=== PATIENT | female | born 1955 | race Caucasian/White ===

== ENCOUNTER 2019-10-27 08:44 | Outpatient (CLI) | payer MEDICARE, OTHER, SELFPAY ==
--- NOTE | 2019-10-27 08:52 | XRR_ITS ---
PROCEDURE INFORMATION: Exam: XR Chest, 2 Views Exam date and time: 10/27/2019 9:07 AM Age: 63 years old Clinical indication: Patient HX: Chronic rhinitis, sinusitis, cough, fever TECHNIQUE: Imaging protocol: XR of the chest Views: Frontal and lateral upright views. COMPARISON: No relevant prior studies available. FINDINGS: Lungs: The lungs are clear bilaterally. The pulmonary vasculature is normal. Pleural space: No pleural effusion. No pneumothorax. Heart/Mediastinum: The heart is normal in size and contour. Aorticopulmonary window granulomatous jermaine calcifications are present. The lungs are clear bilaterally. Bones/joints: No acute chest wall abnormality identified. XR/XR chest 2V* [id number] IMPRESSION: No acute cardiopulmonary abnormality identified.
== END 2019-10-27 08:45 | disposition home or self-care (01) ==
PROVIDERS: Family Provider Electrodiagnostic Medicine; Visit Provider Otolaryngology
DX: R50.9 Fever, unspecified (principal)
CPT/HCPCS: 71046

== ENCOUNTER 2020-02-26 08:45 | Outpatient (CLI) | payer MEDICARE, OTHER, SELFPAY ==
--- NOTE | 2020-02-26 08:50 | MM_ITS ---
WS: [id number] Exam: [id number] Date/Time of Exam: 02/26/2020 8:54 AM Reason For Exam: SCREENING VIEWS: MLO and CC views both breasts. Comparison made with prior exam of 12/22/2016. Findings: There was no sign of mass, architectural distortion or suspicious calcification in either breast. Sca ttered fibroglandular densities noted bilaterally. MM/[id number] Impression: BI-RADS: 2-Benign FOLLOW-UP: 1 Year Follow-up This mammogram was also analyzed by the Computer Aided Detection System R2 Imag e Color Expert.
== END 2020-02-26 08:46 | disposition home or self-care (01) ==
LOC: RADSHAW 08:48
PROVIDERS: PCP Electrodiagnostic Medicine; Visit Provider Electrodiagnostic Medicine
DX: Z12.31 Encounter for screening mammogram for malignant neoplasm of breast (principal)
CPT/HCPCS: 77067

== ENCOUNTER 2020-05-03 09:32 | Outpatient (CLI) | payer MEDICARE, OTHER, SELFPAY ==
[2020-05-03 10:54] LABS: Basophils # 0.1 10^3/uL (0.0-0.1); Basophils % 1.3 %; Eosinophils # 0.4 10^3/uL (0.0-0.8); Hematocrit 35.7 % (37.0-47.0); Lymphocytes # 2.1 10^3/uL (0.8-4.8); Lymphocytes % 32.4 %; Mean Corpuscular HGB Conc 33.6 g/dL (30.0-36.0); Mean Corpuscular Hemoglobin 30.5 pg (28.0-34.0); Mean Corpuscular Volume 90.6 fL (81-99); Mean Platelet Volume 9.1 fL (7.4-10.4); Monocytes # 0.5 10^3/uL (0.2-0.9); Monocytes % 7.9 %; Neutrophils # 3.25 10^3/uL (1.8-7.7); Neutrophils % 51.4 %; Nucleated Red Blood Cells % 0 %; Platelet Count 375 10^3/cmm (130-400); Red Blood Count 3.94 10^6/uL (4.1-5.3); Red Cell Distribution Width 12.5 % (12.1-15.1); White Blood Count 6.3 10^3/uL (4.0-10.0)
[2020-05-03 11:19] LABS: Alanine Aminotransferase 21 U/L (0-33); Albumin Level 4.1 g/dL (3.5-5.2); Alkaline Phosphatase 74 IU/L (35-105); Anion Gap 14.9 (5-19); Aspartate Amino Transferase 27 U/L (0-32); Blood Urea Nitrogen 11 mg/dL (8-23); Calcium 9.9 mg/dL (8.5-10.5); Carbon Dioxide 28 mmol/L (22-29); Chloride 96 mmol/L (98-107); Globulin 2.8 g/dL (1.3-4.6); Glomerular Filtration Rate 83.7 mL/min (90-130); Glucose 106 mg/dL (65-115); Osmolality Calculated 280 mOsm/kg (285-295); Potassium 3.9 mmol/L (3.5-5.1); Sodium 135 mmol/L (136-145); Total Bilirubin 0.3 mg/dL (0.15-1.2); Total Protein 6.9 g/dL (6.6-8.7)
== END 2020-05-03 09:33 | disposition home or self-care (01) ==
PROVIDERS: PCP Electrodiagnostic Medicine; Visit Provider Internal Medicine Pulmonary Disease
DX: R05 Cough (principal)
CPT/HCPCS: 36415; 80053; 85025; 86331; 86606; 86609; 86631; 86632

== ENCOUNTER → 2020-05-12 12:06 | Outpatient (BNVA) | payer MEDICARE, OTHER, SELFPAY | PROVIDERS: PCP Electrodiagnostic Medicine; Visit Provider Internal Medicine Pulmonary Disease | DX: R05 Cough (principal) | CPT/HCPCS: 87635 ==

== ENCOUNTER 2020-05-17 13:19 | Outpatient (CLI) | payer MEDICARE, OTHER, SELFPAY ==
--- NOTE | 2020-05-17 13:30 | CT_ITS ---
WS: [id number] CT CHEST high-resolution, noncontrast. HISTORY: to rule out ILD TECHNIQUE: High-resolution axial imaging performed on the thorax. Coronal and sagittal reformats are submitted. All CT scans at [facility] use at least one of these dose optimization techniq ues: automated exposure control; mA and/or kV adjustment per patient size (includes targeted exams wh ere dose is matched to clinical indication); or iterative reconstruction. CONTRAST: None DLP: 281.65 mGy.cm COMPARISON: None available. Hyperinflated lungs. No reticulations in the periphery of the lungs. There is no honeycombing or trac tion bronchiectasis. On expiration there is an increase in the groundglass attenuation consistent wit h volume loss and crowding. No persistent areas of atelectasis noted on the prone positioning. Very mild atherosclerosis of the aorta. Pulmonary artery size is equal to the aorta. Heart size is no rmal. Visualization of the chest wall and upper abdomen are negative. CT/CT chest wo con [id number] IMPRESSION: 1. Mild hyperexpansion. 2. No evidence for interstitial lung disease.
--- NOTE | 2020-05-17 14:38 | PFTS_ITS ---
Date of Study:05/17/20 Date of Dictation: MECHANICS: Forced vital capacity (FVC) is . Forced expiratory volume in one second (FEV1) is . FEV1/FVC is . FLOW VOLUME LOOP: . LUNG VOLUMES: Total lung capacity (TLC) is . Residual volume (RV) is . DIFFUSING CAPACITY FOR CARBON MONOXIDE: . INTERPRETATION: The pulmonary function tests are . mechanics and lung volumes. Gas exchange (DLCO) is . MTDD
--- NOTE | 2020-05-17 14:39 | MECH_ITS ---
Date of Study:05/17/20 Date of Dictation: 05/18/2020 INTERPRETATION: The methacholine challenge test is negative MTDD
--- NOTE | 2020-06-07 14:40 | PFTS_ITS ---
Date of Study:05/17/20 Date of Dictation: MECHANICS: Forced vital capacity (FVC) is normal. Forced expiratory volume in one second (FEV1) is normal. FEV1/FVC is normal No significant response to bronchodilators.. FLOW VOLUME LOOP: Normal. LUNG VOLUMES: Not measured DIFFUSING CAPACITY FOR CARBON MONOXIDE: Not measured . INTERPRETATION: The spirometry is normal. Lung volumes and gas transfer not measured. MTDD
== END 2020-05-17 13:20 | disposition home or self-care (01) ==
LOC: CT 13:19
PROVIDERS: PCP Electrodiagnostic Medicine; Visit Provider Internal Medicine Pulmonary Disease
DX: R05 Cough (principal)
CPT/HCPCS: 71250; 94060; 94070; 94726; 94729; J7611

== ENCOUNTER 2021-04-15 13:10 | Outpatient (CLI) | payer MEDICARE, OTHER, SELFPAY ==
--- NOTE | 2021-04-15 13:21 | MM_ITS ---
WS: [id number] BILATERAL SCREENING DIGITAL MAMMOGRAM WITH CAD HISTORY: SCREENING COMPARISON: 02/26/2020, 07/12/2018, 01/15/2019 Bilateral CC and MLO views submitted. Computer aided detection analyzed. Breast composition: There are scattered areas of fibroglandular density. No suspicious masses, microc alcifications or architectural distortion. Benign calcifications LEFT breast. No suspicious masses. MM/[id number] IMPRESSION: BI-RADS: 2-Benign FOLLOW UP: 1 Year Follow-up
== END 2021-04-15 13:11 | disposition home or self-care (01) ==
LOC: RADSHAW 13:19
PROVIDERS: PCP Electrodiagnostic Medicine; Visit Provider Electrodiagnostic Medicine
DX: Z12.31 Encounter for screening mammogram for malignant neoplasm of breast (principal)
CPT/HCPCS: 77067

== ENCOUNTER → 2021-10-25 09:26 | Outpatient (BNVA) | payer MEDICARE, OTHER, SELFPAY | PROVIDERS: PCP Electrodiagnostic Medicine; Referring Provider Electrodiagnostic Medicine; Visit Provider Specialist | DX: G62.89 Other specified polyneuropathies (principal) | CPT/HCPCS: 95909; 95911 ==

== ENCOUNTER → 2022-02-17 07:15 | Outpatient (BNVA) | payer MEDICARE, OTHER, SELFPAY | PROVIDERS: PCP Electrodiagnostic Medicine; Referring Provider Electrodiagnostic Medicine; Visit Provider Student in an Organized Health Care Education/Training Program | DX: M16.11 Unilateral primary osteoarthritis, right hip (principal) | CPT/HCPCS: 73502; 99204 ==

== ENCOUNTER 2022-03-07 11:07 | Outpatient (CLI) | payer MEDICARE, OTHER, SELFPAY | END 2022-03-07 11:08 | disposition home or self-care (01) | LOC: RT 03-08 12:23 | PROVIDERS: PCP Electrodiagnostic Medicine; Visit Provider Student in an Organized Health Care Education/Training Program | DX: Z01.89 Encounter for other specified special examinations (principal) | CPT/HCPCS: 93005 ==

== ENCOUNTER 2022-03-10 09:20 | Outpatient (CLI) | payer MEDICARE, OTHER, SELFPAY ==
--- NOTE | 2022-03-10 13:00 | CT_ITS ---
WS: [id number] CT RIGHT hip, noncontrast HISTORY: pre op planning TECHNIQUE: Protocol for [facility] total hip replacement has been obtained. This includes axial imaging thr ough the pelvis and knees, bilateral. DLP: 809.36 mGy-cm. COMPARISON: None available. Flattening and deformity involving the RIGHT femoral head with mild subluxation. Subchondral cystic c hanges involving the acetabulum. Very minimal narrowing of the LEFT hip joint. Very minimal narrowing of the medial compartments of each knee. No dislocation. No destructive bone l esions. CT/CT hip RT [facility] IMPRESSION: CT imaging provided for [facility] robotic RIGHT hip replacement.
== END 2022-03-10 09:21 | disposition home or self-care (01) ==
LOC: RAD 09:20
PROVIDERS: PCP Electrodiagnostic Medicine; Visit Provider Student in an Organized Health Care Education/Training Program
DX: Z01.818 Encounter for other preprocedural examination (principal); M16.11 Unilateral primary osteoarthritis, right hip
CPT/HCPCS: 73700

== ENCOUNTER 2022-03-15 13:58 | Observation (INO) | payer MEDICARE, OTHER, SELFPAY ==
[2022-03-07 10:54] VITALS: BMI 35.9
--- NOTE | 2022-03-07 11:07 | ECG_ITS ---
[facility] Test Date: 2022-03-07 Pat Name: Chelsey Carrizales Department: Room: Gender: Female Operator/Assistant Foreman: : 1955 Requested By: Darius Betancourt Order Number: [id number] Estela MD: Hay Rojas M.D. Measurements Intervals [place] Rate: 78 P: 39 [place]: 174 QRS: 6 QRSD: 92 T: 53 QT: 363 QTc: 415 Interpretive Statements SINUS RHYTHM POSSIBLE ANTERIOR MYOCARDIAL INFARCTION , PROBABLY OLD [30 ms Q WAVE IN V3/V4, OR R < 0.2 mV IN V4] No previous ECG available for comparison Electronically Signed On 03-07-2022 21:06:25 [employer] by Hay Rojas M.D. [id number]
[2022-03-07 11:45] LABS: Basophils # 0.1 10^3/uL (0.0-0.1); Basophils % 1.2 %; Eosinophils # 0.4 10^3/uL (0.0-0.8); Eosinophils % 5.8 %; Hematocrit 38.8 % (37.0-47.0); Hemoglobin 13.1 g/dL (11.5-15.3); Lymphocytes # 2.5 10^3/uL (0.8-4.8); Lymphocytes % 37.3 %; Mean Corpuscular HGB Conc 33.8 g/dL (30.0-36.0); Mean Corpuscular Hemoglobin 29.8 pg (28.0-34.0); Mean Corpuscular Volume 88.2 fl (81-99); Mean Platelet Volume 9.1 fL (7.4-10.4); Monocytes # 0.5 10^3/uL (0.2-0.9); Monocytes % 7.7 %; Neutrophils # 3.15 10^3/uL (1.8-7.7); Neutrophils % 47.7 %; Nucleated Red Blood Cells % 0 %; Platelet Count 438 10^3/cmm (130-400); Red Cell Distribution Width 12.4 % (12.1-15.1); White Blood Count 6.6 10^3/uL (4.0-10.0)
[2022-03-07 12:02] LABS: Glucose Urine UA Norm (Normal); Ketones Urine Negative (Negative); Protein Urine Neg (Negative); Urine Appearance Clear (CLEAR); Urine Color Yellow (Yellow); pH Urine 7 (5-7)
[2022-03-07 12:03] LABS: Add Urine Culture? Yes; Add Urine Microscopic? YES; Bacteria Urine 4+ /hpf; Bilirubin Urine Neg (Negative); Blood Urine 2+ (Negative); Leukocyte Esterase Urine Trace (Negative); Nitrate Urine Positive (Negative); RBC Urine 0-4 /hpf (0-2); Squamous Epithelial Cell Urine 0-4 /hpf (0-5); Urobilinogen Urine Norm (Negative)
[2022-03-07 12:10] LABS: Alanine Aminotransferase 19 U/L (0-33); Albumin Level 4.2 g/dL (3.5-5.2); Alkaline Phosphatase 81 U/L (35-105); Aspartate Amino Transferase 29 U/L (0-32); Blood Urea Nitrogen 12 mg/dL (8-23); Carbon Dioxide 26 mmol/L (22-29); Chloride 96 mmol/L (98-107); Creatinine Clr Calc Pharmacy 86.2317; Globulin 2.9 g/dL (1.3-4.6); Glomerular Filtration Rate 122.7 mL/min (90-130); Glucose 119 mg/dL (65-115); Osmolality Calculated 275 mOsm/kg (285-295); Sodium 132 mmol/L (136-145); Total Bilirubin 0.4 mg/dL (0.15-1.2); Total Protein 7.1 g/dL (6.6-8.7)
--- NOTE | 2022-03-07 14:17 | ANES.PREANE2 ---
Pre-Anesthetic Assessment Height/Weight: Height 1.73 m Weight 107.048 kg Preop Diagnosis: Right hip AVN, advanced degenerative joint disease Operation Date: 03/15/22 13:10 Proposed Procedures p [facility] right total hip arthroplasty [facility] posterior approach/ [id number](Right) - Darius Betancourt DO Familial anesthetic complications: none Was Beta Kory taken within 24 hours: Yes Was Clonidine taken within 24 hours: N/A Social No alcohol and No tobacco Exam alert, oriented x 3, clear to auscultation bilaterally and regular rate & rhythm Airway Submandibular: within normal limits Cervical ROM: within normal limits Mallampati: Class II Dentition: full Pulmonary Asthma CV/HEM Hypertension Metabolic Morbid Obesity and Thyroid Disease [facility] [place] Osteoarthritis/DJD Neuropsych Anxiety and Neuropathy Anesthetic Plan ASA status: 3 Anesthesia: Regional (specify below) (SAB) Medications/Allergies Home Medications Medication Instructions Recorded Confirmed Last Taken Type cyclobenzaprine 10 mg tablet 10 mg PO TID 04/07/20 03/07/22 Unknown History fluticasone propionate 50 1 spray intranasal BID 04/07/20 03/07/22 Unknown History mcg/actuation nasal spray,suspension (Flonase Allergy Relief) hydrochlorothiazide 12.5 mg tablet 12.5 mg PO DAILY 04/07/20 03/07/22 Unknown History levothyroxine 125 mcg tablet 150 mcg PO DAILY 04/07/20 03/07/22 Unknown History meloxicam 15 mg tablet 15 mg PO DAILY 04/07/20 03/07/22 Unknown History metoprolol succinate 100 mg 100 mg PO DAILY 04/07/20 03/07/22 Unknown History tablet,extended release 24 hr montelukast 10 mg tablet 10 mg PO DAILY 04/07/20 03/07/22 Unknown History rizatriptan 10 mg tablet (Maxalt) 10 mg PO Q2H PRN Headache 04/07/20 03/07/22 Unknown History trazodone 100 mg tablet 100 mg PO DAILY 04/07/20 03/07/22 Unknown History metoclopramide HCl 10 mg tablet 10 mg PO Q6H PRN Nausea 05/03/20 03/07/22 Unknown History alprazolam 0.5 mg disintegrating 0.5 mg PO DAILY 10/25/21 03/07/22 Unknown History tablet cholecalciferol (vitamin D3) 125 125 mcg PO DAILY 10/25/21 03/07/22 Unknown History mcg (5,000 unit) capsule losartan 50 mg tablet 50 mg PO DAILY 10/25/21 03/07/22 Unknown History magnesium oxide 400 mg PO DAILY 10/25/21 03/07/22 Unknown History tramadol 50 mg tablet 100 mg PO TID PRN Pain 10/25/21 03/07/22 Unknown History vitamin B complex 1 tab PO DAILY 10/25/21 03/07/22 Unknown History aspirin 81 mg tablet 81 mg PO DAILY 03/07/22 03/07/22 Unknown History gabapentin 100 mg capsule 300 mg PO TID 03/07/22 03/07/22 Unknown History Allergies Allergy/AdvReac Type Severity Reaction Status Date / Time No Known Allergies Allergy Verified 03/07/22 10:41 [facility] Anesthesia Medical History Chronic cough Family History Mother Hypertension Heart disease Father Heart disease Hypertension Stroke Social History Smoking and tobacco status: never smoked Second hand smoke exposure: No Smoking risk assessment/counseling performed?: Yes Alcohol intake: never Caregiver/support person: No Lives independently: Yes Household members: none Housing: House Marital status: service: No Current occupational status: retired Pets and animals: Yes History of recent travel: No ( for [place] ) Current gender identity: Female Data Anesthesia : 03/07/22 11:23 03/07/22 11:23 Short CBC 03/07/22 Range/Units 11:23 WBC 6.6 (4.0-10.0) 10^3/uL Hgb 13.1 (11.5-15.3) g/dL Hct 38.8 (37.0-47.0) % MCV 88.2 (81-99) fl Plt Count 438 H (130-400) 10^3/cmm Neut % (Auto) 47.7 % Neut # (Auto) 3.15 (1.8-7.7) 10^3/uL BMP 03/07/22 11:23 Sodium 132 L Potassium 4.0 Chloride 96 L Carbon Dioxide 26 BUN 12 Creatinine 0.5 Glucose 119 H Calcium 10.0 Liver Function 03/07/22 Range/Units 11:23 Total Bilirubin 0.4 (0.15-1.2) mg/dL AST 29 (0-32) U/L ALT 19 (0-33) U/L Alkaline Phosphatase 81 (35-105) U/L Albumin 4.2 (3.5-5.2) g/dL Urine 03/07/22 Range/Units 11:23 Urine Color Yellow (Yellow) Urine Appearance Clear (CLEAR) Urine pH 7 (5-7) Ur Specific [place] 1.010 (1.005-1.030) Urine Protein Neg (Negative) Urine Glucose (UA) Norm (Normal) Urine Ketones Negative (Negative) Urine Nitrate Positive H (Negative) Urine Bilirubin Neg (Negative) Ur Leukocyte Esterase Trace H (Negative) Urine RBC 0-4 H (0-2) /hpf Urine WBC 10-15 H (0-5) /hpf Coags 03/07/22 11:23 PT Cancelled INR Cancelled Cardiac Studies: No Data to Display
[2022-03-15] VITALS (20 sets, daily range): BP systolic 105–184; BP diastolic 56–134; PULSE 69–113; RESP 11–21; TEMP 36.1–36.6; O2SAT 93–100; BMI 35.9
[2022-03-15] MEDS: sodium chloride 0.9% 1,000 ML 30 ML IV (08:41)
[2022-03-15] MEDS: scopolamine 1.5 Patch 1 PATCH TRANSDERMA (08:41)
[2022-03-15] MEDS: gabapentin 300 mg Capsule PO ×2 (08:42→16:10)
[2022-03-15] MEDS: ketorolac 30 mg/mL INJ IVP (08:42)
[2022-03-15] MEDS: acetaminophen 1,000 MG/100 ML PIGGYBACK 400 MG IV (08:42)
--- NOTE | 2022-03-15 08:47 | P.ANESUD_ITS ---
Pre-Anesthetic Update Pre-Anesthetic Assessment: Date of Surgery/Procedure: 03/15/22 Preop Martha gnosis: Right hip AVN, advanced degenerative joint disease Proposed Procedure: Operation Date: 03/15/22 09:50 Proposed Procedures p [facility] right total hip arthroplasty [facility] posterior approach/ [id number](Right) - Darius Betancourt, DO Any changes to Pre-Anesthetic Assessment?: No Last Intake: Intake Last Liquid Date 03/14/22 Last Liquid Time 19:00 Last Solid Date 03/14/22 Last Solid Time 21:00 Vitals: Temperature 98 F 03/15/22 08:24 Temperature Source Temporal Artery S can 03/15/22 08:24 Pulse Rate 89 03/15/22 08:24 Respiratory Rate 18 03/15/22 08:24 Pulse Oximetry 96 03/15/22 08:24 Oxygen Delivery Me thod 03/15/22 08:24 Exam: Pre-Anes Outpt Exam: alert, oriented x 3, clear to auscultation bilaterally and regular rate & rhythm Cardiac Studies: No Data to Display
[2022-03-15 09:01] LABS: INR 0.95 (0.8-1.2)
--- NOTE | 2022-03-15 10:12 | W.PM.OPSUD ---
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
--- NOTE | 2022-03-15 13:06 | XR_ITS ---
WS: [id number] Exam: XR hip RT 2-3V wo/w pel* [id number] Date/Time of Exam: 03/15/2022 1:39 PM Reason For Exam: postop AMANDA A right total hip prosthesis has been placed and appears to be in excellent position. Postoperative c hanges in the adjacent soft tissues. XR/XR hip RT 2-3V wo/w pel* [id number] IMPRESSION: 1. Right total hip prosthesis in excellent position.
--- NOTE | 2022-03-15 13:16 | PM.OP2 ---
Brief Operative Note Date of procedure: 03/15/22 Pre-op diagnosis: Right hip AVN, advanced degenerative joint disease Post-op diagnosis: same Procedure Done: Right total hip arthroplasty Surgeon: Darius Betancourt Estimated blood loss (mL): 250 Complications: None Post-op Plan: Recovering well in PACU. Spinal anesthesia wearing off. Hip abduction pillow on in place. Patient will receive postoperative x-rays. Weightbearing as tolerated to the right lower extremity. DVT prophylaxis, pain control postoperative antibiotics. We will work with PT/OT. Internal medicine will be on board for medical management. Condition: stable Disposition: floor Coding Level of Care Code Acute Campus Coordinator for Elsa Boyd
--- NOTE | 2022-03-15 13:37 | PM.PACU ---
PACU note Narrative: Patient recovering well in PACU. Spinal anesthesia wearing off. She has sensation tact light touch distally to the right lower extremity. Distal pulses palpable she is able to wiggle toes as well as plantarflex and dorsiflex ankle. Will receive postoperative x-rays. Dressings on in place and are clean dry and intact Exam: awake (See narrative for detailed exam) Disposition: admitted
--- NOTE | 2022-03-15 13:38 | PM.OP ---
Operative Report Date of procedure: March 15, 2022 Pre-op diagnosis: Preop Diagnosis Right hip AVN, advanced degenerative joint disease Post-op diagnosis: Same Procedure done: Right total hip arthroplasty?Farhat posterior approach Implants: [place] Trident TriTanium acetabular shell 54 mm Gisele 6.5 mm acetabular screw 30 mm x 2 Polyethylene 36 mm inner diameter insert [place] Accolade 2 size 5 Biolox ceramic femoral head 36 mm standard offset Surgeon: Darius Betancourt DO Estimated blood loss: 250 mL IV fluids: See anesthesia record Complications: None Findings: See operative report narrative Condition: stable Disposition: floor Brief History: Patient was seen evaluate in the outpatient setting worked up for right hip degenerative joint disease with advanced AVN of the femoral head. Patient's had rapid progressing AVN with now severe flattening of the femoral head on the acetabulum. Tinz-ma-lbnw arthritis noted. She is failed conservative treatment she had an injection back in October she is now over 90 days from her injection. She was seen evaluated in the fall and her physical exam findings she is limited to a wheelchair and minimal ambulation secondary to her pain and discomfort. We talked about her treatment options far as nonoperative and operative intervention. This point time I feel that she would greatly benefit from a right total hip arthroplasty. Given her AVN of the femoral head I do worry about potential dysplasia of the acetabulum and possible posterior and superior defects. As result would plan on giving her acetabular defect potential as well as body habitus feel as though she be a good candidate for a posterior approach right total hip arthroplasty utilizing Farhat. Document risk benefits complication alternatives surgical nonsurgical treatment options. She understands and agrees to proceed with surgical intervention at this time. All questions answered. Procedure: Patient was seen evaluate in preoperative holding area. Consent was reviewed and signed with patient. Correct extremity was then marked. Patient seen evaluate by anesthesia department once cleared for surgery she was taken back to the operative suite. She underwent spinal anesthesia per the anesthesia department. This point time she was then placed on the operative suite and table. She was then placed in lateral decubitus patient worked with the right hip up. She was secured to the pegboard. All bony prominences well-padded she was properly secured to the bed. At this point time the right lower extremity was then prepped and draped in standard orthopedic fashion with care not to drape out the iliac wing for pelvic array placement. Final timeout performed. Patient received appropriate preoperative antibiotics. Started off with establishment of my pelvic array pins. A small longitudinal incision was made directly over the iliac wing. Sharp scalpel excision through skin and subcutaneous tissue directly onto bone. Next I then loaded my pelvic pin. This was then drilled through the iliac wing corridor with excellent fixation. Next I then loaded the guide which was placed directly onto bone and then subsequently placed 2 more pins to secure fixation. Next the pelvic array was then sent had excellent visualization with the Farhat robot and was secured. Next I proceeded with my stapling to francisco my leg lengths this was placed on the lateral thigh. Next I proceeded with my standard posterior approach. Sharp scalpel through skin and subcutaneous tissue this was centered over the greater trochanter. I then utilized a Lala elevator over the gluteus terra fascia. Next the fascia was then split longitudinally with bipolar electrocautery. Next a Charnley retractor was then placed. All bone was then placed into the abductors. A standard full-thickness release of the piriformis and the short external rotators along with the capsule to grade 1 full thick sleeve for later repair was then placed straight down to the lesser trochanter. Lesser trochanter was then subsequently identified. Prior to dislocating the hip we then placed our greater trochanter femur checkpoint. We marked our appropriate checkpoint for referencing on her pelvic array. At this point in time we then established both of our checkpoints as well as her referencing for leg lengths I utilized the small square staple on the lateral aspect of the thigh to francisco my distal point. The legs were marked and traced to have appropriate position on the drapes to allow for accurate reading. This is to have a short leg lengths which we were 19 mm short on the right side comparative to the left in our preoperative plan. Once this was then established I then proceeded with dislocation of the femoral head. At this point Hohmann's were then placed superiorly and inferiorly. My sciatic nerve was protected throughout this case. At this point time I then utilized the Farhat robot and referencing point to reference different aspects along the femoral head and neck for my appropriate neck length. These were referenced on the inferior mid substance as well as up into the superior shoulder of the femoral neck. This marked my Subsequently oscillating saw was used to make my femoral neck cut. Next the leg was placed in appropriate position and my anterior and posterior acetabular retractors then placed. Next I excised the labrum and then remove the pulse in our. I did do a small release of the inferior capsule which was severely taut to allow for easier placement of my reamers as well as reduction. Acetabulum was thoroughly irrigated. It was noted to have more of a defect on the superior and anterior aspect given patient's deformed femoral head. I had significant medialization that could take place with my preoperative plan at this point time I did not feel as though an augment would be necessary as I would have excellent bone implant interface. At this point in time keeping my retractors in place I subsequently loaded up the [employer] robot for my acetabular reaming. I subsequently medialized with a 48 mm with appropriate positioning. Next I then set my 54 reamer under the Farhat robot and subsequently held this with appropriate preplanned preop planned version of 40 degrees of abduction angle as well as 22 degrees of anteversion. I then subsequently reamed this to the appropriate depth. We opened up the acetabular shell of the 54 mm [place] this was then loaded onto my impacting system and then I subsequently impacted this to appropriate depth. This was then removed from the robot and I used the Farhat probe at the center to confirm on the CT scan that this was down on bone which it was. Next I then drilled and placed 2 acetabular screws with excellent fixation these were drilled and measured to be 30 mm this was in the posterior superior aspect of the acetabulum had excellent bite and fixation. The cup was rocksolid with no evidence of plain had excellent press-fit fixation. And opened the 36 mm inner diameter Trident polyethylene insert which was then subsequently placed in appropriate position and impacted into place. I then placed a sponge into the acetabulum to protect the polyethylene while my femur preparation was performed. At this point time I then utilized a small rongeur to clear off the shoulder of the femoral neck to clear out the soft tissue envelope for my box osteotome. Next box osteotome was used a canal finder was placed as well as a lateral lysing rattail rasp. Once I was appropriately lateralized I then sequentially broached up to a size 5 femoral stem. This was impacted to appropriate depth and flushed with my femoral neck cut. This point I loaded a standard size neck and subsequently reduced the hip. At this point in time the hip was taken through range of motion before evaluating with the robot on her leg lengths. Patient appeared to have equal leg lengths clinically. The hip was taken through range of motion and had excellent stability with hip flexion and internal rotation with no evidence of instability had an appropriate shuck. This point time utilized the Farhat probe from our femur checkpoint down to her distal checkpoint and this had excellent match of leg lengths. We had lengthened the patient roughly 19-20 millimeters to match her other leg lengths. At this point time with this in place she did have some tension in her abductors due to obviously her being somewhat lengthened however at this point time this was excellent stable and had appropriate match leg lengths. I did check her nerve which was still lax and did not appear to be overly tension due to her lengthening. At this point I dislocated the hip and then called for my final implants. Opened up a size 5 femoral Accolade 2 stem. My trials were then removed and then subsequently impacted my Accolade 2 stem to the same level. Given this was at the same level I then opened up the final ceramic 36 mm standard offset femoral head. This was impacted with excellent fixation and the hip was subsequently reduced. We measured our final leg lengths which were appropriate patient had excellent stability in all ranges of motion. This point time a robotic pins and checkpoints were removed. I remove the femur checkpoint as well as my pelvic array and iliac wing pins. Appropriate counts were then made. This point time thoroughly irrigated the wound bed with pulse lavage. Vancomycin powder was then sprinkled into the wound bed. I then performed a standard capsular and external rotator repair utilizing #5 Ethibond and this was tied and repaired through bone tunnels hip was then kept in abduction external rotation 1 and subsequently closed the fascial layer with Ethibond suture as well as running strata fix suture. I then closed the deep subcutaneous layer as well as superficial subcutaneous layer with running strata fix suture as well as 4 oh strata fix for skin. Prineo glue dressing was then placed over the skin. I then irrigated the pelvic array pin site. There is were then closed with interrupted 020 Vicryl suture and Monocryl as well as Prineo glue for the skin. Incisions were then covered with Silverlon dressing. Patient was awakened from anesthesia and taken to PACU in stable condition Disposition: Patient taken to PACU in stable condition. She will receive appropriate discharge instructions as well as DVT prophylaxis and pain medication. She will be admitted to the floor for observation should be evaluated by the internal medicine team for medical management. Patient received appropriate DVT prophylaxis as well as pain medication PT/OT weightbearing as tolerated right lower extremity with posterior hip precautions. We will follow-up with patient in the office in 2 weeks. Patient understands agrees with current plan. All questions answered.
--- NOTE | 2022-03-15 14:47 | ANE.PACU2 ---
Inpatient post-anesthesia follow up: Airway intact: Yes Vital signs: Temperature 97.5 F Pulse Rate 76 Respiratory Rate 16 Blood Pressure 122/88 Pulse Oximetry 98 Oxygen Delivery Me thod Room Air Oxygen Flow Rate 8 Fraction of Inspir ed Oxygen Hydration adequate: Yes Nausea and vomiting: No Pain level: 1 Mental status: Baseline
--- NOTE | 2022-03-15 15:36 | PM.CONSULT ---
Providers/Reason For Consult Consulting Physician/Specialty*: orthopedic Reason for Consult*: medical managment Attending Physician: Darius Betancourt DO Primary Care Provider: Bennett Pa DO History of Present Illness History of Present Illness Chelsey Carrizales is a 66 year old female with a past medical history of hypertension, hyperlipidemia, right hip AVN, who presents for a right hip arthroplasty. Hospitalist team was called for medical management, she denies a history of CAD, no history of COPD, history of smoking, history of diabetes, no history of kidney disease, she tells me that she has been dealing with right hip pain for the last year. She lives at home by herself, is able to take care of herself. Denies any chest pain, palpitations, no shortness of breath. Denies history of anemia, denies a history of bleeding Review of Systems Const: Denies: fever(s) Card: Denies: chest pain Resp: Denies: dyspnea Medications/Allergies Home Medications Medication Instructions Recorded Confirmed Last Taken Type cyclobenzaprine 10 mg tablet 10 mg PO TID 04/07/20 03/15/22 03/14/22 History fluticasone propionate 50 1 spray intranasal BID 04/07/20 03/15/22 03/15/22 07:00 History mcg/actuation nasal spray,suspension (Flonase Allergy Relief) hydrochlorothiazide 12.5 mg tablet 12.5 mg PO DAILY 04/07/20 03/15/22 03/14/22 History levothyroxine 125 mcg tablet 150 mcg PO DAILY 04/07/20 03/15/22 03/14/22 History meloxicam 15 mg tablet 15 mg PO DAILY 04/07/20 03/15/22 03/13/22 History metoprolol succinate 100 mg 100 mg PO DAILY 04/07/20 03/15/22 03/14/22 History tablet,extended release 24 hr montelukast 10 mg tablet 10 mg PO DAILY 04/07/20 03/15/22 03/14/22 History rizatriptan 10 mg tablet (Maxalt) 10 mg PO Q2H PRN Headache 04/07/20 03/15/22 03/08/22 History trazodone 100 mg tablet 100 mg PO DAILY 04/07/20 03/15/22 03/14/22 History metoclopramide HCl 10 mg tablet 10 mg PO Q6H PRN Nausea 05/03/20 03/15/22 03/14/22 History alprazolam 0.5 mg disintegrating 0.5 mg PO DAILY 10/25/21 03/15/22 03/14/22 History tablet cholecalciferol (vitamin D3) 125 125 mcg PO DAILY 10/25/21 03/15/22 03/14/22 History mcg (5,000 unit) capsule losartan 50 mg tablet 50 mg PO DAILY 10/25/21 03/15/22 03/14/22 History magnesium oxide 400 mg PO DAILY 10/25/21 03/15/22 03/14/22 History tramadol 50 mg tablet 100 mg PO TID PRN Pain 10/25/21 03/15/22 03/14/22 History vitamin B complex 1 tab PO DAILY 10/25/21 03/15/22 03/14/22 History aspirin 81 mg tablet 81 mg PO DAILY 03/07/22 03/15/22 03/10/22 History gabapentin 100 mg capsule 300 mg PO TID 03/07/22 03/15/22 03/14/22 History Allergies Allergy/AdvReac Type Severity Reaction Status Date / Time No Known Allergies Allergy Verified 03/15/22 08:15 PFSH Acute PFSH: Medical History (Updated 03/15/22 @ 15:39 by Topher Palmer MD) Chronic cough Hypertension Hypothyroid Surgical History (Updated 03/15/22 @ 15:39 by Topher Palmer MD) Hx of appendectomy Hx of tonsillectomy Family History Mother Hypertension Heart disease Father Heart disease Hypertension Stroke Social History Smoking and tobacco status: never smoked Second hand smoke exposure: No Smoking risk assessment/counseling performed?: Yes Alcohol intake: never Caregiver/support person: No Lives independently: Yes Household members: none Housing: House Marital status: service: No Current occupational status: retired Pets and animals: Yes History of recent travel: No ([place] for [place] ) Current gender identity: Female Vitals/I&O/Wt Last Vital Signs Temp 97.5 F L 03/15/22 14:10 Pulse 76 03/15/22 14:10 Resp 16 11/16/22 14:10 BP 122/88 03/15/22 14:10 Pulse Ox 98 03/15/22 14:10 O2 Del Method 03/15/22 14:10 O2 Flow Rate 8 03/15/22 13:40 03/15/22 03/15/22 03/15/22 06:59 14:59 22:59 Intake Total 1400 / 1400 Output Total 250 / 250 Balance 1150 / 1150 Physical Exam Const: COMMON NORMALS: no acute distress and patient oriented x3 HENMT: COMMON NORMALS: normocephalic HEAD & SCALP: normocephalic Resp: COMMON NORMALS: normal respiratory effort, No retractions, No use of accessory muscles and clear to auscultation bilaterally AUSCULTATION: clear to auscultation bilaterally Cardio: COMMON NORMALS: regular rate, regular rhythm, S1 normal heart sound present and S2 normal heart sound present RATE: regular rate RHYTHM: regular rhythm HEART SOUNDS: S1 normal heart sound present and S2 normal heart sound present GI: COMMON NORMALS: Normal to inspection, nondistended, normoactive bowel sounds present, Soft to palpation, non-tender, no masses and no bruits PALPATION: Yes Soft to palpation Extremity: COMMON NORMALS: no calf tenderness and no pedal edema Neuro: COMMON NORMALS: patient oriented x3 Psych: COMMON NORMALS: mental status grossly normal Data 03/07/22 11:23 03/07/22 11:23 A&P Assessment and plan (1) S/P total right hip arthroplasty: Plan Right hip arthroplasty -Pain control and anticoagulation as per orthopedic team -PT OT Hypertension, continue home medications Hypothyroidism, continue home medications Continue alprazolam, trazodone Monitor respiratory status Peripheral neuropathy continue gabapentin CBC, BMP ordered for tomorrow Consult Attestations Medical Necessity Statement: Patient requires hospitalization for right hip arthroplasty Coding Level of Care Code Acute Educational Administrator for Chg Fwd Diagnoses S/P total right hip arthroplasty Z96.641
[2022-03-15] MEDS: acetaminophen 500 mg Tablet 1000 MG PO ×2 (16:08→21:48)
[2022-03-15] MEDS: ceFAZolin 2,000 MG in sodium chloride 0.9% (plus) 50 ML 100 MG IV ×2 (16:09→21:47)
[2022-03-15] MEDS: sodium chloride 0.9% 1,000 ML 100 ML IV (16:11)
--- NOTE | 2022-03-15 17:42 | PC.NURSE ---
surgery contacted reguarding medication tranexamic if the first dose was given and if it was what time татьяна willingham spoke to dr dudley ...dr dudley stated 1st dose should have been gived around 11am today ...i contacted pharmacy ...pharmacy report this was pulled from [facility] around 10am...the dose that was pullled wasnt given per pharmacy...i nela conctact dr dudley to see what he wants to do
--- NOTE | 2022-03-15 17:53 | PC.NURSE ---
talked to dr dudley he confirmed that the first dose of tranexamic acid was given at 11am today and the 2nd dose should be given at 1900
[2022-03-15] MEDS: chlorhexidine gluconate 0.12% Btl 473 mL 30 ML MUCOUS MEM ×2 (18:05→20:48)
[2022-03-15] MEDS: calcium carbonate 500 mg Chew Tablet 1000 MG PO (18:07)
[2022-03-15] MEDS: iron polysaccharide complex 150 mg Capsule PO (18:07)
[2022-03-15] MEDS: sennosides-docusate Tablet 2 TAB PO (18:08)
[2022-03-15] MEDS: mupirocin oint 22 gm 1 APPLIC NASAL (18:08)
[2022-03-15] MEDS: oxyCODONE 5 mg IR Tab/Cap PO (18:32)
[2022-03-15] MEDS: gabapentin 100 mg Capsule 300 MG PO (20:47)
[2022-03-15] MEDS: HYDROmorphone 1 mg/mL INJ 1 mL 0.5 MG IVP (20:55)
[2022-03-15] MEDS: trazodone 100 mg Tablet PO (21:49)
[2022-03-15] MEDS: ALPRAZolam 0.5 mg Tablet PO (23:59)
[2022-03-16] VITALS: BP 132/85; PULSE 121; RESP 18; TEMP 36.6; O2SAT 93
[2022-03-16] MEDS: ketorolac 30 mg/mL INJ 15 MG IVP (00:48)
[2022-03-16] MEDS: sodium chloride 0.9% 1,000 ML 100 ML IV (03:40)
[2022-03-16 04:00] VITALS: BP 113/76; PULSE 121; RESP 17; TEMP 36.9; O2SAT 93
[2022-03-16 05:25] LABS: Basophils % 0.5 %; Eosinophils # 0.1 10^3/uL (0.0-0.8); Eosinophils % 1.6 %; Hematocrit 31.9 % (37.0-47.0); Hemoglobin 10.6 g/dL (11.5-15.3); Lymphocytes # 1.7 10^3/uL (0.8-4.8); Lymphocytes % 19.6 %; Mean Corpuscular HGB Conc 33.2 g/dL (30.0-36.0); Mean Corpuscular Hemoglobin 30.1 pg (28.0-34.0); Mean Corpuscular Volume 90.6 fl (81-99); Monocytes # 0.7 10^3/uL (0.2-0.9); Monocytes % 7.9 %; Neutrophils % 70.2 %; Nucleated Red Blood Cells % 0 %; Platelet Count 350 10^3/cmm (130-400); Red Blood Count 3.52 10^6/uL (4.1-5.3); Red Cell Distribution Width 13.1 % (12.1-15.1); White Blood Count 8.7 10^3/uL (4.0-10.0)
[2022-03-16 05:42] LABS: Anion Gap 11.9 (5-19); Blood Urea Nitrogen 12 mg/dL (8-23); Calcium 9.9 mg/dL (8.5-10.5); Carbon Dioxide 26 mmol/L (22-29); Chloride 103 mmol/L (98-107); Creatinine Clr Calc Pharmacy 86.2317; Glomerular Filtration Rate 83.2 mL/min (90-130); Glucose 136 mg/dL (65-115); Osmolality Calculated 286 mOsm/kg (285-295); Potassium 3.9 mmol/L (3.5-5.1); Sodium 137 mmol/L (136-145)
[2022-03-16] MEDS: acetaminophen 500 mg Tablet 1000 MG PO (05:42)
[2022-03-16] MEDS: ceFAZolin 2,000 MG in sodium chloride 0.9% (plus) 50 ML 100 MG IV (05:42)
--- NOTE | 2022-03-16 07:56 | P.PN_ITS ---
Subjective Subjective: Patient doing well having some pain to her right hip that is controlled with medications. She worked with therapy and walked over 50 feet. Her baseline is mostly been wheelchair and transfers. This point time does feel better than he did before surgery. I have her seen evaluated by internal me delia as well as work with therapy twice today. If she is doing well plan to discharge home with home health care later today. She will see me in office in 2 weeks. No issues overnight. Denies any fevers chills chest pain shortness of breath nausea vomiting or urinary symptoms. Posterior hip precautions Vitals/I&O/Wt Last Vital Signs Temp 98.4 F 03/16/22 04:00 Pulse 121 H 03/16/22 04:00 Resp 17 03/16/22 04:00 BP 113/76 03/16/22 04:00 Pulse Ox 93 03/16/22 04:00 O2 Del Method 03/16/22 04:00 O2 Flow Rate 8 03/15/22 13:40 03/15/22 03/16/22 03/16/22 22:59 06:59 14:59 Intake Total 1270 / 2670 1290 / 3960 Balance 1270 / 2420 1290 / 3710 Weight last 48 hrs Weight 236 lb Physical Exam Narrative: Right hip leg lengths equal abduction pillow on in place. Patient is able to wiggle toes plantarflex and dorsiflex ankle incisions clean dry and intact with Silverlon dressing on in place her sensations intact light touch distally. Distal pulses are palpable. Data 03/16/22 05:02 03/16/22 05:02 Xray Ortho: My impression: X-rays show stable right total hip arthroplasty no periprosthetic fractures noted. A&P Assessment and plan (1) S/P total right hip arthroplasty: Plan Weightbearing as tolerated right lower extremity Posterior hip precautions Eliquis for DVT prophylaxis Regular diet Internal medicine for medical management PT/OT Pain control Plan for therapy this morning as well as afternoon. Will be seen evaluated by internal medicine. Once cleared by medicines work with therapy we will plan for discharge later today. She will likely need discharge home with home health care. Patient understands and agrees with current plan. All questions answered at this time. Attestations Medical Necessity Statement*: Status post right total hip arthroplasty requiring hospitalization for DVT prophylaxis and pain control and therapy Coding Level of Care Code Acute Architectural Drafting Instructor for Elsa Fwd Diagnoses S/P total right hip arthroplasty Z96.641 Time Spent (min) 20
[2022-03-16 07:59] VITALS: BP 131/81; PULSE 118; RESP 15; TEMP 36.9; O2SAT 94
--- NOTE | 2022-03-16 08:26 | ECG_ITS ---
[facility] Test Date: 2022-03-16 Pat Name: Chelsey Carrizales Department: Room: 255 Gender: Female School Principal: : 1955 Requested By: Topher Palmer Order Number: [id number] Estela MD: Gurwinder Quick M.D. Measurements Intervals [place] Rate: 117 P: 51 [place]: 166 QRS: 0 QRSD: 90 T: 56 QT: 329 QTc: 459 Interpretive Statements SINUS TACHYCARDIA POSSIBLE ANTERIOR MYOCARDIAL INFARCTION , OF INDETERMINATE AGE [30 ms Q WAVE IN V3/V4, OR R < 0.2 mV IN V4] INFERIOR MYOCARDIAL INFARCTION , PROBABLY OLD [40+ ms Q WAVE AND/OR ST/T ABNORMALITY IN II/aVF] Compared to ECG 03/07/2022 11:07:18 Sinus rhythm no longer present Myocardial infarct finding still present Electronically Signed On 03-17-2022 6:26:47 CENTERPUNCHER by Gurwinder Quick M.D. [id number]
--- NOTE | 2022-03-16 09:39 | PM.PN ---
Subjective Subjective: Patient was seen this morning, she had some pain overnight, no chest pain, no palpitations, she did have episodes of tachycardia during the night, but she tells me that she did not really feel it Vitals/I&O/Wt Last Vital Signs Temp 98.5 F 03/16/22 07:59 Pulse 118 H 03/16/22 07:59 Resp 15 03/16/22 07:59 BP 131/81 03/16/22 07:59 Pulse Ox 94 03/16/22 07:59 O2 Del Method 03/16/22 07:59 O2 Flow Rate 8 03/15/22 13:40 03/15/22 03/16/22 03/16/22 22:59 06:59 14:59 Intake Total 1270 / 2670 1290 / 3960 Balance 1270 / 2420 1290 / 3710 Weight last 48 hrs Weight 107.048 kg Physical Exam Const: COMMON NORMALS: no acute distress and patient oriented x3 Resp: COMMON NORMALS: normal respiratory effort, No retractions, No use of accessory muscles and clear to auscultation bilaterally AUSCULTATION: clear to auscultation bilaterally Cardio: COMMON NORMALS: regular rate, S1 normal heart sound present and S2 normal heart sound present RATE: regular rate HEART SOUNDS: S1 normal heart sound present and S2 normal heart sound present GI: COMMON NORMALS: Normal to inspection, nondistended, normoactive bowel sounds present and non-tender Extremity: COMMON NORMALS: no pedal edema Neuro: COMMON NORMALS: patient oriented x3 Psych: COMMON NORMALS: mental status grossly normal Data 03/16/22 05:02 03/16/22 05:02 A&P Assessment and plan (1) S/P total right hip arthroplasty: Plan Right hip arthroplasty -Pain control and anticoagulation as per orthopedic team -PT OT Hypertension, continue home medications Hypothyroidism, continue home medications Continue alprazolam, trazodone Monitor respiratory status Peripheral neuropathy continue gabapentin Tachycardia, on EKG seems like sinus tachycardia, she is asymptomatic, no chest pain, palpitations, she will EKGs consulted once a telemetry monitoring -Continue home beta-naomi -We will continue to monitor -Check magnesium level -Likely can discharge today but as per orthopedics Attestations Medical Necessity Statement*: Patient requires hospitalization for tachycardia Coding Level of Care Code Acute Senior Quality Analyst for Chg Fwd Diagnoses S/P total right hip arthroplasty Z96.641
[2022-03-16] MEDS: gabapentin 100 mg Capsule 300 MG PO (10:03)
[2022-03-16] MEDS: calcium carbonate 500 mg Chew Tablet 1000 MG PO (10:03)
[2022-03-16] MEDS: iron polysaccharide complex 150 mg Capsule PO (10:04)
[2022-03-16] MEDS: montelukast sodium 10 mg Tablet PO (10:04)
[2022-03-16] MEDS: apixaban 5 mg Tablet 2.5 MG PO (10:05)
[2022-03-16] MEDS: multivitamin therapeutic Tablet 1 TAB PO (10:05)
[2022-03-16] MEDS: metoprolol succinate ER (24 HR) 100 mg Tablet PO (10:05)
[2022-03-16] MEDS: cholecalciferol (vitamin D3) 1,000 unit Tablet 1000 UNIT PO (10:05)
[2022-03-16] MEDS: aspirin 81 mg EC Tablet PO (10:05)
[2022-03-16] MEDS: levothyroxine 125 mcg Tablet 150 MCG PO (10:06)
[2022-03-16] MEDS: hydroCHLOROthiazide 25 mg Tablet 12.5 MG PO (10:08)
[2022-03-16 10:30] LABS: Troponin(5th) Baseline 9 ng/L (0-10)
--- NOTE | 2022-03-16 10:39 | ECG_ITS ---
[facility] Test Date: 2022-03-16 Pat Name: Chelsey Carrizales Department: Room: 255 Gender: Female Printing Press Operator: : 1955 Requested By: Topher Palmer Order Number: [id number] Estela MD: Gurwinder Quick M.D. Measurements Intervals [place] Rate: 122 P: 40 [place]: 151 QRS: 15 QRSD: 93 T: 53 QT: 327 QTc: 467 Interpretive Statements SINUS TACHYCARDIA POSSIBLE ANTERIOR MYOCARDIAL INFARCTION , PROBABLY OLD [30 ms Q WAVE IN V3/V4, OR R < 0.2 mV IN V4] Compared to ECG 03/16/2022 08:47:18 No significant changes Electronically Signed On 03-17-2022 6:33:07 TERRITORY SALES CONSULTANT by Gurwinder Quick M.D. [email or web address] [id number]
[2022-03-16 10:59] LABS: Magnesium 1.8 mg/dL (1.7-2.3)
[2022-03-16 11:52] VITALS: BP 117/73; RESP 15; TEMP 37.1; O2SAT 92
[2022-03-16 12:01] VITALS: BP 117/73
[2022-03-16] MEDS: losartan 50 mg Tablet PO (12:01)
[2022-03-16 12:12] LABS: Troponin 5 2HR 12.55 ng/L (0-10)
[2022-03-16 12:14] LABS: Troponin 5 2HR Delta 3.55 ABS# (0-10)
--- NOTE | 2022-03-16 13:18 | P.DS_ITS ---
Discharge Providers Date of Admission: 03/15/22 13:58 Date of Discharge: March 16, 2022 Attending Provider at Admission: Darius Betancourt DO Attending Provider at Discharge: Darius Betancourt DO Consults: Dr. Palmer?internal medicine Primary Care Provider: Bennett Pa DO Diagnoses at Discharge Discharge Diagnosis (1) S/P total right hip arthroplasty: Status: Acute Reason for Visit Reason for Visit: M16.11 Brief History: Patient had failed conservative treatment for right hip AVN developing advanced degenerative joint disease with [id number] arthritis. Patient received right hip intra-articular injection in October which went on to only work for a short period of time. At this point time she was outside of the 90-day joint replacement window and medically optimized and cleared for surgical intervention for right total hip arthroplasty. Hospital Course Hospital Course Patient worked up in the outpatient setting and found to have severe AVN of the right femoral head with advanced degenerative joint disease and failed conservative treatment. Failed injection in early October and now is outside of the 90-day window to proceed with surgical intervention. She was seen evaluated by primary care physician as well as the anesthesia department and cleared for surgical intervention. She presented a surgery to the preoperative area she was cleared for surgical intervention patient subsequently underwent a right total hip arthroplasty utilizing a posterior approach with Farhat. Patient underwent procedure without complications. Postoperative x-rays show stable right total hip arthroplasty. Patient recovered well in PACU and was admitted to the floor postoperatively. She progressed well with physical therapy. She was seen evaluated by the internal medicine department and medical management throughout her hospitalization. Labs were monitored postoperatively. On postoperative day 1 patient progressed well with therapy she was seen evaluated by myself as well as internal medicine and cleared for discharge home. She worked with case management and has home health care established. She received appropriate pain medication DVT prophylaxis as well as appropriate discharge instructions postoperatively she will follow-up with me in 2 weeks. She understands her posterior hip precautions with the been maintained throughout her hospital ization. No complications during this hospitalization. Physical Exam Narrative: Examination of the right hip demonstrates dressings on in place are clean dry and intact. She is able to wiggle toes plantarflex dorsiflex ankle. Equal leg lengths on clinical examination. Sensation tact light touch distally at the SPN/DPN/tibial/saphenous/sural nerve distribution. Distal pulses palpable. Compartment soft compressible. Normal postoperative swelling around the hip. Calves are soft and nontender. Discharge Data Studies Completed and Pending Completed Studies During Hospitalization Category Date Time Status XR hip RT 2-3V wo/w pel* [id number] Routine Exams 03/15/22 13:06 Completed Pending at discharge Category Date Time Status Basic Metabolic Panel AM LABS Lab 03/17/22 04:00 Ordered Basic Metabolic Panel AM LABS Lab 03/18/22 04:00 Ordered Complete Blood Count w/Auto AM LABS Lab 03/17/22 04:00 Ordered Complete Blood Count w/Auto AM LABS Lab 03/18/22 04:00 Ordered Troponin(5th) 6 hour. Timed Lab 03/16/22 15:45 Ordered Radiology Impressions Hip/Pelvis X-Ray 03/15/22 13:06 IMPRESSION: 1. Right total hip prosthesis in excellent position. Laboratory Results WBC 8.7 10^3/uL (4.0-10.0) 03/16/22 05:02 RBC 3.52 10^6/uL (4.1-5.3) L 03/16/22 05:02 Hgb 10.6 g/dL (11.5-15.3) L 03/16/22 05:02 Hct 31.9 % (37.0-47.0) L 03/16/22 05:02 MCV 90.6 fl (81-99) 03/16/22 05:02 MCH 30.1 pg (28.0-34.0) 03/16/22 05:02 MCHC 33.2 g/dL (30.0-36.0) 03/16/22 05:02 RDW 13.1 % (12.1-15.1) 03/16/22 05:02 Plt Count 350 10^3/cmm (130-400) 03/16/22 05:02 MPV 9.0 fL (7.4-10.4) 03/16/22 05:02 Neut % (Auto) 70.2 % 03/16/22 05:02 Lymph % (Auto) 19.6 % 03/16/22 05:02 [place] % (Auto) 7.9 % 03/16/22 05:02 Eos % (Auto) 1.6 % 03/16/22 05:02 Baso % (Auto) 0.5 % 03/16/22 05:02 Neut # (Auto) 6.10 10^3/uL (1.8-7.7) 03/16/22 05:02 Lymph # (Auto) 1.7 10^3/uL (0.8-4.8) 03/16/22 05:02 [place] # (Auto) 0.7 10^3/uL (0.2-0.9) 03/16/22 05:02 Eos # (Auto) 0.1 10^3/uL (0.0-0.8) 03/16/22 05:02 Baso # (Auto) 0.0 10^3/uL (0.0-0.1) 03/16/22 05:02 Nucleated RBC % (auto) 0 % 03/16/22 05:02 Nucleated RBCs # 0.0 /100WBC 03/16/22 05:02 PT 13.00 SECONDS (12.1-14.9) 03/15/22 08:37 INR 0.95 (0.8-1.2) 03/15/22 08:37 Sodium 137 mmol/L (136-145) 03/16/22 05:02 Potassium 3.9 mmol/L (3.5-5.1) 03/16/22 05:02 Chloride 103 mmol/L (98-107) 03/16/22 05:02 Carbon Dioxide 26 mmol/L (22-29) 03/16/22 05:02 Anion Gap 11.9 (5-19) 03/16/22 05:02 BUN 12 mg/dL (8-23) 03/16/22 05:02 Creatinine 0.7 mg/dL (0.5-0.9) 03/16/22 05:02 GFR Calculation 83.2 mL/min (90-130) L 03/16/22 05:02 Glucose 136 mg/dL (65-115) H 03/16/22 05:02 Calculated Osmolality 286 mOsm/kg (285-295) 03/16/22 05:02 Calcium 9.9 mg/dL (8.5-10.5) 03/16/22 05:02 Magnesium 1.8 mg/dL (1.7-2.3) 03/16/22 09:45 Total Bilirubin 0.4 mg/dL (0.15-1.2) 03/07/22 11:23 AST 29 U/L (0-32) 03/07/22 11:23 ALT 19 U/L (0-33) 03/07/22 11:23 Alkaline Phosphatase 81 U/L (35-105) 03/07/22 11:23 Troponin T Baseline 9 ng/L (0-10) 03/16/22 09:45 Troponin T 120 Minute 12.55 ng/L (0-10) H 03/16/22 11:37 Delta Troponin T 3.55 ABS# (0-10) 03/16/22 11:37 Total Protein 7.1 g/dL (6.6-8.7) 03/07/22 11:23 Albumin 4.2 g/dL (3.5-5.2) 03/07/22 11:23 Globulin 2.9 g/dL (1.3-4.6) 03/07/22 11:23 Urine Color Yellow (Yellow) 03/07/22 11:23 Urine Appearance Clear (CLEAR) 03/07/22 11:23 Urine pH 7 (5-7) 03/07/22 11:23 Ur Specific [place] 1.010 (1.005-1.030) 03/07/22 11:23 Urine Protein Neg (Negative) 03/07/22 11:23 Urine Glucose (UA) Norm (Normal) 03/07/22 11:23 Urine Ketones Negative (Negative) 03/07/22 11:23 Urine Blood 2+ (Negative) H 03/07/22 11:23 Urine Nitrate Positive (Negative) H 03/07/22 11:23 Urine Bilirubin Neg (Negative) 03/07/22 11:23 Urine Urobilinogen Norm mg/dL (Negative) 03/07/22 11:23 Ur Leukocyte Esterase Trace (Negative) H 03/07/22 11:23 Urine RBC 0-4 /hpf (0-2) H 03/07/22 11:23 Urine WBC 10-15 /hpf (0-5) H 03/07/22 11:23 Ur Squamous Epith Cells 0-4 /hpf (0-5) H 03/07/22 11:23 Amorphous Sediment Not Reportable 03/07/22 11:23 Urine Bacteria 4+ /hpf (NONE) H 03/07/22 11:23 Blood Type O Positive 03/15/22 08:37 Rho(D) Type Positive 03/15/22 08:37 Antibody Screen Negative 03/15/22 08:37 Imaging Xray Ortho: Radiologist's impression: X-rays in PACU demonstrate stable right total hip arthroplasty with stable implants no periprosthetic fracture. Procedures Performed Right total hip arthroplasty?Farhat posterior approach Vitals Last Vital Signs Temp 98.7 F 03/16/22 11:52 Pulse 118 H 03/16/22 07:59 Resp 15 03/16/22 11:52 BP 117/73 03/16/22 12:01 Pulse Ox 92 03/16/22 11:52 O2 Del Method 03/16/22 11:52 O2 Flow Rate 8 03/15/22 13:40 Discharge Plan Discharge Patient Disposition: Home Health Service Condition: Stable Prescriptions: New ondansetron 4 mg tablet,disintegrating 4 mg PO DAILY PRN (Reason: nausea and vomiting) 5 Days Qty: 10 0RF calcium carbonate-vitamin D3 600 mg-10 mcg (400 unit) Tablet 1 ea PO BID 30 Days Qty: 60 0RF Endocet 5-325 mg tablet 2 tab PO Q6H PRN (Reason: pain) 7 Days Qty: 56 0RF Rx Instructions: May take 1-2 tablets p.o. every 6 hours as needed Eliquis 2.5 mg tablet 2.5 mg PO BID 30 Days Qty: 60 0RF Colace 100 mg capsule 100 mg PO DAILY 10 Days Qty: 10 0RF Continued metoclopramide HCl 10 mg tablet 10 mg PO Q6H PRN (Reason: Nausea) cyclobenzaprine 10 mg tablet 10 mg PO TID fluticasone propionate [Flonase Allergy Relief] 50 mcg/actuation spray,suspension 1 spray intranasal BID Rx Instructions: administer into each nostril hydrochlorothiazide 12.5 mg tablet 12.5 mg PO DAILY levothyroxine 125 mcg tablet 150 mcg PO DAILY rizatriptan [Maxalt] 10 mg tablet 10 mg PO Q2H PRN (Reason: Headache) Rx Instructions: do not exceed 3 doses per 24 hrs metoprolol succinate 100 mg tablet extended release 24 hr 100 mg PO DAILY montelukast 10 mg tablet 10 mg PO DAILY trazodone 100 mg tablet 100 mg PO DAILY alprazolam 0.5 mg tablet,disintegrating 0.5 mg PO DAILY losartan 50 mg tablet 50 mg PO DAILY tramadol 50 mg tablet 100 mg PO TID PRN (Reason: Pain) vitamin B complex Tablet 1 tab PO DAILY magnesium oxide 400 mg magnesium tablet 400 mg PO DAILY cholecalciferol (vitamin D3) 125 mcg (5,000 unit) capsule 125 mcg PO DAILY gabapentin 100 mg capsule 300 mg PO TID aspirin 81 mg Tablet 81 mg PO DAILY Discontinued meloxicam 15 mg tablet 15 mg PO DAILY Discharge Orders: Discharge Order (Routine); Ordered 03/16/22 Ordered By: Darius Betancourt Referrals: Darius Betancourt DO [Physician] - (appointment scheduled : March 31, 2022 at time of 10:45 am) [facility], [Staff Physician] - (wiil call you to schedule your home care) Discharge Diet: Advance as tolerated Discharge Activity: Increase activity as tolerated and Limit activity as instructed Patient Instructions: Laxative, Stool Softeners (By mouth) (Doculax, Colace, Colace Clear, DSS), Ondansetron (By mouth) (Zofran, Zofran ODT, Zuplenz), Calcium/Vitamin D Supplement (By mouth) (Mazin-Citrate, Mazin-Citrate..., Narcotic- Analgesic/Acetaminophen (By mouth) (Percocet, [place],..., Apixaban (By mouth) (Eliquis), Total Hip Replacement (DC), Opioid Safety Activity Restrictions/Additional Instructions: Orthopedic discharge instructions: Patient may be weightbearing as tolerated to the right lower extremity Maintain posterior hip precautions?do not cross legs past midline avoid hip flexion past 90 degrees and internal rotation Take pain medication as prescribed Take Eliquis (DVT prophylaxis/blood clot prevention) as prescribed Take antinausea medication Supplement with vitamin D and calcium Take Colace if constipated Keep incision clean dry and intact, may remove [place] dressing after 1 week then may shower and run water over incision. No baths or soaks Follow-up with Dr. Betancourt in 2 weeks Contact the office for any questions or concerns Discharge Attestations Time Spent in Discharge Care*: greater than 30 min Quality Metrics Clinical Quality Measures [ No reported AMI, CVA or VTE this stay] Coding Level of Care Code Acute Chg FW DC note Diagnoses S/P total right hip arthroplasty Z96.641 Time Spent (min) 45
[2022-03-16 14:49] VITALS: BP 117/73
== END 2022-03-16 15:55 | disposition home health service (06) ==
LOC: MEDSURG 13:59
PROVIDERS: Family Medicine; Admitting Provider Student in an Organized Health Care Education/Training Program; PCP Electrodiagnostic Medicine; Visit Provider Student in an Organized Health Care Education/Training Program
PROC: 8E0Y0CZ Robotic Assisted Procedure of Lower Extremity, Open Approach (ICD-10-PCS; CPT 27130; principal; 2022-03-15 09:50)
DX: M16.11 Unilateral primary osteoarthritis, right hip (principal); I10 Essential (primary) hypertension; E66.01 Morbid (severe) obesity due to excess calories; Z68.35 Body mass index [BMI] 35.0-35.9, adult; F41.9 Anxiety disorder, unspecified; E03.9 Hypothyroidism, unspecified
CPT/HCPCS: 27130; 36415; 73502; 80048; 80053; 81001; 83735; 84484; 85025; 85610; 86850; 86900; 87077; 87086; 87186; 93005; 97110; 97116; 97161; 97165; 97530; 97535; C1713; C1776; G0378; J0131; J0690; J1170; J1885; J2250; J2370; J2405; J2704; J3010; J3490; J7030

== ENCOUNTER → 2022-03-22 09:50 | Outpatient (BNVA) | payer MEDICARE, OTHER, SELFPAY | PROVIDERS: PCP Electrodiagnostic Medicine; Visit Provider Specialist | DX: G62.89 Other specified polyneuropathies (principal) | CPT/HCPCS: 99204 ==

== ENCOUNTER → 2022-03-31 10:39 | Outpatient (BNVA) | payer MEDICARE, OTHER, SELFPAY | PROVIDERS: PCP Electrodiagnostic Medicine; Visit Provider Student in an Organized Health Care Education/Training Program | DX: Z96.641 Presence of right artificial hip joint (principal); M17.12 Unilateral primary osteoarthritis, left knee | CPT/HCPCS: 73502; 73560; 73565 ==

== ENCOUNTER 2022-03-31 13:37 | Outpatient (CLI) | payer MEDICARE, OTHER, SELFPAY | END 2022-03-31 13:38 | disposition home or self-care (01) | LOC: SPT 13:38 | PROVIDERS: PCP Electrodiagnostic Medicine; Visit Provider Student in an Organized Health Care Education/Training Program | DX: Z46.89 Encounter for fitting and adjustment of other specified devices (principal); M17.10 Unilateral primary osteoarthritis, unspecified knee | CPT/HCPCS: 97760; 99214; L1852 ==

== ENCOUNTER → 2022-04-28 08:38 | Outpatient (BNVA) | payer MEDICARE, OTHER, SELFPAY | PROVIDERS: PCP Electrodiagnostic Medicine; Visit Provider Student in an Organized Health Care Education/Training Program | DX: M17.12 Unilateral primary osteoarthritis, left knee (principal); Z96.641 Presence of right artificial hip joint | CPT/HCPCS: 73502; 99214 ==

== ENCOUNTER 2022-05-03 10:17 | Outpatient (CLI) | payer MEDICARE, OTHER, SELFPAY ==
--- NOTE | 2022-05-03 10:23 | MM_ITS ---
WS: [id number] Bilateral screening 3D tomosynthesis digital mammogram, 05/03/2022 Clinical Data: SCREENING Comparison: 04/15/2021, 02/26/2020, 01/15/2019, 07/12/2018, 01/16/2018, 01/04/2018, 12/22/2016, 11/03/2015, , 09/29/2013, 11/07/2011, 10/26/2010. Findings: The breast parenchymal pattern shows fibroglandular tissue. No spiculated masses or clustered calcifi cations are seen. There are no secondary signs of carcinoma. There are calcifications in the upper ou ter quadrant left breast. There are lymph nodes in both axilla. MM/[place] [id number] Impression: 1. Negative bilateral mammogram unchanged. 2. Recommend annual screening mammograms. BIRADS: 1-Negative FOLLOW UP: 1 Year Follow-up The CAD engineering drawings checker was used.
== END 2022-05-03 10:18 | disposition home or self-care (01) ==
LOC: RAD 10:17
PROVIDERS: PCP Electrodiagnostic Medicine; Visit Provider Electrodiagnostic Medicine
DX: Z12.31 Encounter for screening mammogram for malignant neoplasm of breast (principal)
CPT/HCPCS: 77063; 77067

== ENCOUNTER 2022-05-26 06:40 | Outpatient (CLI) | payer MEDICARE, OTHER, SELFPAY ==
--- NOTE | 2022-05-26 07:00 | CT_ITS ---
WS: [id number] CT LEFT KNEE, NONCONTRAST TECHNIQUE: Noncontrast CT of the LEFT knee to include the LEFT hip and ankle. [facility] CLINICAL INFORMATION: pre op planning DLP: 865.[address] scans at [facility] use at least one of these dose optimization techniques: automated e xposure control; mA and/or kV adjustment per patient size (includes targeted exams where dose is matc hed to clinical indication); or iterative reconstruction. FINDINGS: Prior postoperative changes RIGHT AMANDA. Degenerative narrowing LEFT hip. Moderate suprapatellar effusi on. Tricompartmental arthritis LEFT knee worse medial joint compartment. Mild hypertrophic patella sp urring. RIGHT AMANDA degrades images in the pelvis. Incidental small fat-containing LEFT inguinal herni a. Cortical irregularity involving the medial tibial plateau suspicious for small nondisplaced tibial pl ateau fracture with sclerosis/osteonecrosis. Hypertrophic spurring along the medial joint line. CT/CT knee LT wo con* [id number] IMPRESSION: Images obtained for preoperative purposes.
== END 2022-05-26 06:41 | disposition home or self-care (01) ==
LOC: RAD 06:43
PROVIDERS: PCP Electrodiagnostic Medicine; Visit Provider Student in an Organized Health Care Education/Training Program
DX: M17.12 Unilateral primary osteoarthritis, left knee (principal)
CPT/HCPCS: 73700

== ENCOUNTER → 2022-06-02 10:00 | Outpatient (BNVA) | payer MEDICARE, OTHER, SELFPAY | PROVIDERS: PCP Electrodiagnostic Medicine; Visit Provider Student in an Organized Health Care Education/Training Program | DX: M17.12 Unilateral primary osteoarthritis, left knee (principal); Z96.641 Presence of right artificial hip joint | CPT/HCPCS: 99214 ==

== ENCOUNTER 2022-06-07 06:26 | Day surgery (SDC) | payer MEDICARE, OTHER, SELFPAY ==
[2022-06-02 09:16] VITALS: BMI 35.6
[2022-06-02 09:46] LABS: Basophils # 0.1 10^3/uL (0.0-0.1); Basophils % 1.4 %; Eosinophils # 0.4 10^3/uL (0.0-0.8); Eosinophils % 7.1 %; Hematocrit 38.4 % (37.0-47.0); Hemoglobin 12.7 g/dL (11.5-15.3); Lymphocytes # 2.2 10^3/uL (0.8-4.8); Lymphocytes % 37.6 %; Mean Corpuscular HGB Conc 33.1 g/dL (30.0-36.0); Mean Corpuscular Volume 87.7 fl (81-99); Mean Platelet Volume 9.2 fL (7.4-10.4); Monocytes # 0.5 10^3/uL (0.2-0.9); Monocytes % 8.1 %; Neutrophils # 2.63 10^3/uL (1.8-7.7); Neutrophils % 45.6 %; Nucleated Red Blood Cells % 0 %; Platelet Count 398 10^3/cmm (130-400); Red Blood Count 4.38 10^6/uL (4.1-5.3); Red Cell Distribution Width 12.4 % (12.1-15.1); White Blood Count 5.8 10^3/uL (4.0-10.0)
[2022-06-02 10:03] LABS: Anion Gap 16.2 (5-19); Blood Urea Nitrogen 13 mg/dL (8-23); Carbon Dioxide 23 mmol/L (22-29); Chloride 101 mmol/L (98-107); Glomerular Filtration Rate 99.4 mL/min (90-130); Glucose 103 mg/dL (65-115); Osmolality Calculated 282 mOsm/kg (285-295); Potassium 4.2 mmol/L (3.5-5.1); Sodium 136 mmol/L (136-145)
--- NOTE | 2022-06-02 10:38 | P.ANESASSM_ITS ---
Pre-Anesthetic Assessment Height/Weight: Height 1.73 m Weight 106.141 kg Preop Diagnosis: Right hip AVN, advanced degenerative joint disease Operation Date: 06/07/22 07:00 Proposed Procedures p left knee total rakesh [id number] ,M17.12(Left) - Darius Betancourt DO Familial anesthetic complications: none Was Beta Kory taken within 24 hours: Yes Was Clonidine taken within 24 hours: N/A Social No alcohol and No tobacco Exam alert, oriented x 3, clear to auscultation bilaterally and regular rate & rhythm Airway Submandibular: within normal limits Cervical ROM: within normal limits Mallampati: Class II Dentition: full Pulmonary Asthma CV/HEM Hypertension Metabolic Morbid Obesity and Thyroid Disease [facility] Osteoarthritis/DJD Neuropsych Neuropathy Anesthetic Plan ASA status: 3 Anesthesia: Regional (specify below) (SAB and adductor blk) Medications/Allergies Home Medications Medication Instructions Recorded Confirmed Last Taken Type cyclobenzaprine 10 mg tablet 10 mg PO TID 04/07/20 06/02/22 06/02/22 History fluticasone propionate 50 1 spray intranasal BID 04/07/20 06/02/22 06/02/22 History mcg/actuation nasal spray,suspension (Flonase Allergy Relief) hydrochlorothiazide 12.5 mg tablet 12.5 mg PO DAILY 04/07/20 06/02/22 06/02/22 History levothyroxine 125 mcg tablet 150 mcg PO DAILY 04/07/20 06/02/22 06/02/22 History metoprolol succinate 100 mg 100 mg PO DAILY 04/07/20 06/02/22 06/02/22 History tablet,extended release 24 hr montelukast 10 mg tablet 10 mg PO DAILY 04/07/20 06/02/22 06/02/22 History rizatriptan 10 mg tablet (Maxalt) 10 mg PO Q2H PRN Headache 04/07/20 06/02/22 06/02/22 History trazodone 100 mg tablet 100 mg PO DAILY 04/07/20 06/02/22 06/02/22 History metoclopramide HCl 10 mg tablet 10 mg PO Q6H PRN Nausea 05/03/20 06/02/22 06/02/22 History alprazolam 0.5 mg disintegrating 0.5 mg PO DAILY 10/25/21 06/02/22 06/02/22 History tablet losartan 50 mg tablet 50 mg PO DAILY 10/25/21 06/02/22 06/02/22 History magnesium oxide 400 mg PO DAILY 10/25/21 06/02/22 06/02/22 History tramadol 50 mg tablet 100 mg PO TID PRN Pain 10/25/21 06/02/22 06/02/22 History vitamin B complex 1 tab PO DAILY 10/25/21 06/02/22 06/02/22 History gabapentin 100 mg capsule 300 mg PO TID 03/07/22 06/02/22 06/02/22 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 03/31/22 06/02/22 Unknown Rx Allergies Allergy/AdvReac Type Severity Reaction Status Date / Time No Known Allergies Allergy Verified 06/02/22 10:25 [facility] Anesthesia Medical History Chronic cough Hypertension Hypothyroid Left knee DJD Surgical History Hx of appendectomy Hx of tonsillectomy S/P total hip arthroplasty S/P total right hip arthroplasty Family History Mother Hypertension Heart disease Father Heart disease Hypertension Stroke Social History Smoking and tobacco status: never smoked Second hand smoke exposure: No Smoking risk assessment/counseling performed?: Yes Alcohol intake: never Caregiver/support person: No Lives independently: Yes Household members: none Housing: House Marital status: service: No Current occupational status: retired Pets and animals: Yes History of recent travel: No ( for [employer] ) Current gender identity: Female Data Anesthesia 06/02/22 09:35 06/02/22 09:35 Short CBC 06/02/22 Range/Units 09:35 WBC 5.8 (4.0-10.0) 10^3/uL Hgb 12.7 (11.5-15.3) g/dL Hct 38.4 (37.0-47.0) % MCV 87.7 (81-99) fl Plt Count 398 (130-400) 10^3/cmm Neut % (Auto) 45.6 % Neut # (Auto) 2.63 (1.8-7.7) 10^3/uL BMP 06/02/22 09:35 Sodium 136 Potassium 4.2 Chloride 101 Carbon Dioxide 23 BUN 13 Creatinine 0.6 Glucose 103 Calcium 10.0 Cardiac Studies: No Data to Display
--- NOTE | 2022-06-07 06:55 | P.HPUD_ITS ---
Surgery/Procedure H&P Update DATE OF PROCEDURE: June 07, 2022 DATE H&P PERFORMED: 06/02/22 CHANGES TO PREVIOUS DOCUMENTATION: None. Patient ready for surgery today for left total knee arthroplasty using robotic assisted Rakesh. Preoperative labs look good. We will obtain a UA as that was not obtained in the preoperative labs prior to surgery. PREOP DIAGNOSIS: Left knee degenerative joint disease, failed conservative bandar tment PRIMARY INDICATION FOR PROCEDURE: Left knee degenerative joint disease failed conservative treatment PLANNED PROCEDURE: Operation Date: 06/07/22 08:00 Proposed Procedures p left knee total rakesh [id number] ,M17.12(Left) - Darius Betancourt DO
[2022-06-07] MEDS: lactated ringers 1,000 ML 999 ML IV (07:22)
[2022-06-07] MEDS: acetaminophen 1,000 MG/100 ML PIGGYBACK 400 MG IV (07:23)
[2022-06-07] MEDS: ketorolac 30 mg/mL INJ IVP (07:23)
[2022-06-07 07:25] VITALS: BP 173/87; PULSE 76; RESP 18; TEMP 37.4; O2SAT 93
[2022-06-07 07:25] LABS: Add Urine Microscopic? YES; Bacteria Urine 2+ /hpf; Bilirubin Urine Neg (Negative); Blood Urine Neg (Negative); Glucose Urine UA Norm (Normal); Ketones Urine Negative (Negative); Leukocyte Esterase Urine Trace (Negative); Nitrate Urine Negative (Negative); Protein Urine Neg (Negative); Specific Gravity, Urine 1.015 (1.005-1.030); Squamous Epithelial Cell Urine 0-4 /hpf (0-5); Sulfosalicylic Acid Urine Negative (Negative); Urine Appearance Clear (CLEAR); Urine Color Yellow (Yellow); Urobilinogen Urine Neg (Negative); WBC Urine 0-4 /hpf (0-5); pH Urine 8 (5-7)
[2022-06-07 07:26] LABS: Add Urine Culture? No
--- NOTE | 2022-06-07 08:17 | PM.MISC ---
Miscellaneous Note Purpose of Documentation: Orthopedic note update: UA labs this morning show increased pH as well as urine bacteria. At this point time reviewing the results with the patient, she is currently not symptomatic but at this point time we talked about treating this and we will push her procedure off after its been treated. She is obviously disappointed but understands that at this point time we will write a prescription for p.o. Bactrim for 10 days. We will push her surgery back till after treatment and take care of her surgery here in the next couple weeks after she has been treated. Patient understands agrees with current plan. We will cancel her surgery today. All questions have been answered at this time.
--- NOTE | 2022-06-07 09:05 | SUR.PREOP ---
patient cancelled for surgery today due to UA results. patient left in wheelchair with sister
--- NOTE | 2022-06-07 12:27 | SUR.OPER ---
0730 pt case cancelled , meds had been pulled and mixed so they were wasted. 0.2% Ropiviciane 100ml, ketorolac 30mg/ml, epi 1mg/ml, transexamic acid 1000mg.
== END 2022-06-07 09:45 | disposition home or self-care (01) ==
LOC: OR 06:27
PROVIDERS: Anesthesiology; PCP Electrodiagnostic Medicine; Visit Provider Student in an Organized Health Care Education/Training Program
PROC: 8E0Y0CZ Robotic Assisted Procedure of Lower Extremity, Open Approach (ICD-10-PCS; CPT 27447; principal; 2022-06-07 13:15)
DX: M17.12 Unilateral primary osteoarthritis, left knee (principal); Z53.9 Procedure and treatment not carried out, unspecified reason; E66.01 Morbid (severe) obesity due to excess calories; Z68.35 Body mass index [BMI] 35.0-35.9, adult; I10 Essential (primary) hypertension; E03.9 Hypothyroidism, unspecified
CPT/HCPCS: 36415; 80048; 81001; 85025; 86850; 86900; J0131; J1885; J7120

== ENCOUNTER 2022-06-28 10:30 | Observation (INO) | payer MEDICARE, OTHER, SELFPAY ==
[2022-06-27 10:15] VITALS: BMI 35.6
[2022-06-28] VITALS (14 sets, daily range): BP systolic 101–206; BP diastolic 6–107; PULSE 78–93; RESP 13–18; TEMP 36.1–36.8; O2SAT 91–98; BMI 37.1
--- NOTE | 2022-06-28 07:02 | W.PM.OPSUD ---
Surgery/Procedure H&P Update DATE OF PROCEDURE: June 28, 2022 DATE H&P PERFORMED: 06/02/22 CHANGES TO PREVIOUS DOCUMENTATION: None. She presents today ready for surgery she has completed her Bactrim she is asymptomatic we will proceed with surgery today for left total knee arthroplasty?robotic assisted Rakesh. Patient understands risk benefits complication alternatives surgical treatment options. Understanding risk for surgery she agrees to proceed today. All questions answered. She will be admitted postoperatively. PREOP DIAGNOSIS: Left knee degenerative joint disease, failed conservative treatment PRIMARY INDICATION FOR PROCEDURE: Left knee degenerative joint disease, failed conservative treatment PLANNED PROCEDURE: Operation Date: 06/28/22 08:20 Proposed Procedures p left knee total rakesh [id number],M17.12(Left) - Darius Betancourt DO
[2022-06-28] MEDS: ketorolac 30 mg/mL INJ IVP (07:28)
[2022-06-28] MEDS: sodium chloride 0.9% 1,000 ML 30 ML IV (07:32)
[2022-06-28] MEDS: acetaminophen 1,000 MG/100 ML PIGGYBACK 400 MG IV ×3 (07:32→22:44)
[2022-06-28] MEDS: HYDROmorphone 1 mg/mL INJ 1 mL 0.5 MG IVP (07:34)
[2022-06-28] MEDS: scopolamine 1.5 Patch 1 PATCH TRANSDERMA (07:35)
[2022-06-28 07:49] LABS: Basophils # 0.1 10^3/uL (0.0-0.1); Basophils % 1.3 %; Eosinophils # 0.4 10^3/uL (0.0-0.8); Eosinophils % 6.1 %; Hematocrit 38.2 % (37.0-47.0); Lymphocytes # 2.4 10^3/uL (0.8-4.8); Mean Corpuscular Hemoglobin 29.1 pg (28.0-34.0); Mean Corpuscular Volume 85.7 fl (81-99); Monocytes # 0.5 10^3/uL (0.2-0.9); Monocytes % 8.4 %; Neutrophils # 2.73 10^3/uL (1.8-7.7); Nucleated Red Blood Cells % 0 %; Platelet Count 378 10^3/cmm (130-400); Red Blood Count 4.46 10^6/uL (4.1-5.3); Red Cell Distribution Width 12.9 % (12.1-15.1); White Blood Count 6.1 10^3/uL (4.0-10.0)
[2022-06-28] MEDS: lactated ringers 500 ML IV (07:50)
[2022-06-28 08:08] LABS: Blood Urea Nitrogen 13 mg/dL (8-23); Calcium 11.1 mg/dL (8.5-10.5); Carbon Dioxide 27 mmol/L (22-29); Chloride 97 mmol/L (98-107); Glomerular Filtration Rate 83.2 mL/min (90-130); Glucose 114 mg/dL (65-115); Osmolality Calculated 283 mOsm/kg (285-295); Sodium 136 mmol/L (136-145)
[2022-06-28 08:11] LABS: Anion Gap 15.7 (5-19); Potassium 3.7 mmol/L (3.5-5.1)
[2022-06-28] MEDS: ceFAZolin 2,000 MG in sodium chloride 0.9% (plus) 50 ML 100 MG IV ×3 (08:18→22:45)
[2022-06-28] MEDS: tranexamic acid 1,000 mg/10mL SDV 1000 MG IV (08:48)
[2022-06-28] MEDS: ketorolac 30 mg/mL INJ XX (09:38)
[2022-06-28] MEDS: EPINEPHrine 1 mg/mL INJ XX (09:45)
[2022-06-28] MEDS: tranexamic acid 1,000 mg/10mL SDV 1000 MG XX (09:48)
--- NOTE | 2022-06-28 09:57 | P.ANESUD_ITS ---
Pre-Anesthetic Update Pre-Anesthetic Assessment: Date of Surgery/Procedure: 06/28/22 Preop Martha gnosis: Left knee degenerative joint disease, failed conservative treatment Proposed Procedure: Operation Date: 06/28/22 08:20 Proposed Procedures p left knee total rakesh [id number],M17.12(Left) - Darius Betancourt, DO Any changes to Pre-Anesthetic Assessment?: No Last Intake: Intake Last Liquid Date 06/27/22 Last Liquid Time 20:00 Last Solid Date 06/27/22 Last Solid Time 20:00 Labs Last 48hrs: Short CBC 06/28/22 Range/Units 07:29 WBC 6.1 (4.0-10.0) 10^3/ uL Hgb 13.0 (11.5-15.3) g/dL Hct 38.2 (37.0-47.0) % MCV 85.7 (81-99) fl Plt Count 378 (130-400) 10^3/c mm Neut % (Auto) 45.0 % Neut # (Auto) 2.73 (1.8-7.7) 10^3/u L BMP 06/28/22 07:29 Sodium 136 Potassium 3.7 Chloride 97 L Carbon Dioxide 27 BUN 13 Creatinine 0.7 Glucose 114 Calcium 11.1 H Vitals: Temperature 98.3 F 06/28/22 07:19 Temperature Source Temporal Artery S can 06/28/22 07:19 Pulse Rate 82 06/28/22 07:19 Respiratory Rate 18 06/28/22 07:19 Blood Pressure 206/107 06/28/22 07:19 Blood Pressure Amira n 140 06/28/22 07:19 Pulse Oximetry 96 06/28/22 07:19 Oxygen Delivery Me thod 06/28/22 07:19 Exam: Pre-Anes Outpt Exam: alert, oriented x 3, clear to auscultation bilaterally and regular rate & rhythm Cardiac Studies: No Data to Display
--- NOTE | 2022-06-28 09:57 | ANES.PROC ---
Anesthesia Procedures Procedure/Date: 06/28/22 Nerve Block ^: Nerve Block 1: Main Anesthesia: spinal anesthesia block Time Out Performed: Yes Consent: requested by attending/covering physician, from patient, risks and benefits reviewed and patient agrees to proceed Nerve block location: adductor canal (left) Anesthesia monitors applied: pulse oximetry, EKG, BP cuff and oxygen Nerve block position: supine Anesthetic Used: ropivicaine 0.5% Amount of anesthesia used (mL): 20 Ultrasound used to: recognize landmarks Nerve Stimulator Used?: No Interscalene/Femoral BLK: 4 stimuplex 21 g needle used for position and inplane approach Injection: neg aspiration of heme Patient Tolerated Procedure: well Complications: none
--- NOTE | 2022-06-28 11:03 | XR_ITS ---
WS: [id number] XR knee LT 1-2V [id number] REASON FOR EXAM: postop TKA FINDINGS: Total left knee arthroplasty. Prosthetic components are in proper position and alignment. No focal bone abnormality. Immediate post surgical soft tissue changes. XR/XR knee LT 1-2V [id number] IMPRESSION: Total left knee arthroplasty without abnormality.
--- NOTE | 2022-06-28 11:23 | P.OP_ITS ---
Brief Operative Note Date of procedure: 06/28/22 Pre-op diagnosis: Left knee degenerative joint disease, failed conservative tr eatment. Post-op diagnosis: same Procedure Done: Left total knee arthroplasty- Farhat robotic assisted Surgeon: Darius Betancourt Estimated blood loss (mL): 25 Complications: None Post-op Plan: Patient taken to PACU in stable condition. Patient recovering well. Will be admitted to the floor. Internal medicine contacted and on board for medical management. Patient will receive appropriate pain medication, postoperative antibiotics, DVT prophylaxis. Patient received spinal anesthetic. Patient will receive appropriate discharge structure as well as pain medication DVT prophylaxis postoperatively. Patient will follow-up with me in the office in 2 weeks upon discharge. Plan for likely discharge tomorrow. Condition: stable Disposition: floor Coding Level of Care Code Acute Code for Elsa Boyd
--- NOTE | 2022-06-28 11:23 | PM.PACU ---
PACU note Narrative: Patient seen and evaluated postoperatively in PACU. Patient recovering well. Pain controlled. Spinal anesthesia still in effect unable to assess motor or sensory. Patient distal pulses are palpable toes are warm well perfused compartments are soft compressible. Dressings clean dry and intact. Exam: awake Disposition: admitted
--- NOTE | 2022-06-28 11:23 | PM.OP ---
Operative Report Date of procedure: June 28, 2022 Pre-op diagnosis: Preop Diagnosis Left knee degenerative joint disease, failed conservative treatment Procedure: Post-op diagnosis: Same Procedure done: Left total knee arthroplasty, cemented?robotic assisted Farhat Implants: Gisele triathlon size 5 femur? CR cemented Gisele triathlon size 4 tibia universal baseplate cemented Gisele triathlon symmetric patella size 31 mm [place] triathlon polyethylene 9 mm Surgeon: Darius Betancourt DO Estimated blood loss: 25 mL 80 minutes IV fluids: 1000 mL Urine output: 900 mL Complications: None Condition: stable Disposition: floor Brief History: Chelsey is a pleasant 66-year-old female with chronic left knee degenerative joint disease.? pts has had injections that have failed in the past.? Most recently back in the summer. She did subsequently have a arthroscopy procedure in early December which she states never had improvement in her symptoms. She is well-known to my practice and had underwent a right total hip arthroplasty and is recovering well and satisfied with her results and as result at this point time was asked to see and evaluate her left knee. She was found to have complete collapse of her medial compartment. Given patient failed conservative treatment has [id number] arthritis with a varus deformity of the left knee through shared decision making we talked about pts next steps would likely best benefit being a left total knee arthroplasty.? We talked about continued conservative treatment and surgical intervention as far as the risk benefits complications alternatives surgical and nonsurgical treatment options.? At this point time understanding his risks with surgery pt agrees to proceed with surgical intervention.? Once again risk with surgery include but are not limited to make it better make it worse blood clot, heart attack, stroke, on the table, infection, injury to nerves or vessels, persistent pain, arthrofibrosis, implant failure.? Understanding these risks he agrees to proceed with surgical intervention consent was obtained in the office.? All questions answered. Procedure: Patient was seen and evaluated in the preoperative holding area.? Consent was reviewed and signed with patient with plan for left total knee arthroplasty.? All questions answered.? Correct extremities marked.? Patient seen and evaluated by the anesthesia department and once cleared for surgery was taken back to the operative suite.? Patient was placed into a supine position on the OR table.? All bony prominences were well-padded.? Patient was appropriately secured to the bed.? Patient underwent anesthesia per the anesthesia department.? Patient received spinal anesthesia and Luevano catheter was placed.? A nonsterile tourniquet was applied to the left thigh.? At this point in time a final timeout performed.? Patient received appropriate preoperative antibiotics and TXA. Next the left lower extremity was then prepped and draped in standard orthopedic fashion.?Esmarch tourniquet was used exsanguinate the left lower extremity.? Tourniquet was insufflated to 300 mmHg. A standard anterior incision was made over midline of the knee.? Sharp scalpel excision through skin and subcutaneous tissue full-thickness skin flaps were made.? Fascia was elevated off of the extensor retinaculum was stable with medial parapatellar arthrotomy was then made.? The performed standard sequential releases with a medial release was patient had a varus deformity. Visualization of all 3 compartments was found to have eburnated bone in all 3 compartments with osteophyte formation. Most pronounced medially. Next the the patella was then stuffed laterally and the knee was then flexed.? Herminia was placed superiorly and medial around the anterior aspect of the femur this was freed of synovium and I subsequently then placed by 2 femur pins to establish my femur arrays for the Farhat robot.? These were then placed bicortically and? femur array was then appropriately secured with appropriate visualization.? Next attention was turned towards the tibial rays.? These were then drilled sequentially bicortically in parallel fashion and intraincisional.? I then placed my guide as well as my tibial array on in place.? This was appropriately secured and had excellent visualization with the Farhat robot.? Next the tibial checkpoint as well as femur checkpoint were then placed.? At this point time I then subsequently established my head center as well as my medial lateral malleoli as well as my checkpoints.? Next utilizing standard Farhat technology I then mapped out the appropriate points and confirmation points around the femur as well as the tibia in standard fashion.? Once this was then done I then removed all osteophytes in preparation for dynamic testing.? All osteophytes were removed as well as I removed the ACL and left the PCL intact.? Anterior horn of the lateral meniscus was excised. At this point time the knee was brought into full extension and we performed our standard evaluation of our gap balancing stressing ligaments and extension as well as flexion appropriate adjustments were made to have appropriate gap balancing in both flexion and extension. Made appropriate adjustments for appropriate gap balancing altering our femoral and tibial cuts. We get a preoperative plan evaluating our implants which was a size 5 femur and a size 4 tibia.? Next we brought in the [employer] robot and sequentially made our femur cuts.? All bony cuts were then removed.? Finally we made our tibial cut.? Once this was done a standard PCL retractor was then placed into this position I excised the medial and lateral meniscus.? The tibial cut was then subsequently removed all excess bony debris was removed.? Is evident on the tibial cut as there was calcified meniscus as well as small defect posterior medial this was only roughly 3 to 5% of the entire tibial surface I suspect patient had a prior small area of healed subchondral depression fracture. This sclerotic depressed area was drilled to accommodate for cement interdigitation. I then utilized a lamina measuring clerk and remove the posterior osteophytes.? At this point time sized the tibia and confirmed this was a size 5.? I utilized our blunt probe to establish rotation of tibial implant using [employer] robot technology. Once this was done I then placed my tibia size 4 trial in appropriate position and then subsequently placed tibial pins to hold this into place placed a size 9 mm poly as well as a size 5 femur which was appropriately impacted in place knee was then subsequently brought into extension.? Patient was found to be balanced in extension. Slight tightness flexion standard electrocautery release of the proximal portion of the PCL was performed off the femur this created a balanced flexion gap.? Plan was to use an ultracongruent poly and at this point time I was satisfied with the 9 mm thickness of the poly confirming with our [employer] trial implants. Once this was done I had excellent balance gaps in flexion and extension with varus and valgus stresses.? At this point I was satisfied with these implants these were then verified and opened on the back table size 4 tibia, size 5 femur,? size 9 mm polythickness.? We did confirm appropriate gap balancing and stresses as well as alignment utilizing? Farhat and were satisfied with this plan.? At this point time with my trials in place I then towel clip the patella everted this made appropriate measurements subsequently utilizing freehand technique performed by patellar resurfacing this was confirmed to be appropriate resection and subsequently sized to be a 31 mm symmetric.? My drill peg guides were then clamped and appropriate position and appropriate position in the patella for appropriate tracking and parallel with the joint.? Pegs were drilled trial implant was placed and the knee was then subsequently ranged and found to have excellent patellar tracking.? Femur pegs were then drilled.? Satisfied with our tibial placement rotation I then utilized the keel punch and prepped the tibia.? At this point time all of our trial implants were removed.? All checkpoints as well as guidepins and arrays were removed and appropriate counts made.? The wound bed? was thoroughly irrigated and dried and prepped for cementation.? Cement was mixed on the back table.? Once cement was ready this was then covered onto the tibia and the tibial baseplate was then impacted and all excess cement was removed.? Next the polyethylene was then impacted into place on the tibial baseplate.? Next cement was placed onto the femur as well as under the femur implants and impacted in to place and all excess cement was extruded.? Knee was taken into full extension? to clear all excess cement was removed.? Warm saline was placed over the joint.? I then towel clip patella and dried for cementation. cemented the patella into place.? This was all clamped and the cement was allowed to cure.? Thorough irrigation performed with pulse lavage.? I then placed my periarticular injection while the cement was curing.? Once cured the knee was taken through range of motion and had excellent stability and gaps balances.? Tourniquet was then deflated.? Once tourniquet was deflated hemostasis satisfactory with electrocautery.? Next I then subsequently closed the capsule with Ethibond suture as well as a running strata fix suture.? He was then taken through range of motion 30 times.? Next the skin was then closed in layered fashion of running stratifix sutures of deep ans subcutenous tissue and skin. Patient was closed in flexion and Prineo glue was then placed over the incision this allowed to cure.? Incision was covered with OpSite, ABDs soft roll and Shorty wrap.? Patient was then awakened from anesthesia and taken to PACU in stable condition. Disposition: Patient taken to PACU in stable condition will be admitted to the floor for pain control PT/OT weight-bear as tolerated left lower extremity dressing changes as needed, DVT prophylaxis.?Pain control. Patient will receive appropriate postoperative antibiotics. patient will be seen today by the internal medicine team for medical management.? Patient will follow up with the office in 2 weeks.? Patient understands agrees with current plan.? All questions answered.
[2022-06-28] MEDS: lactated ringers 1,000 ML 100 ML IV ×2 (12:13→19:39)
[2022-06-28] MEDS: chlorhexidine gluconate 0.12% Btl 473 mL 30 ML MUCOUS MEM ×3 (12:14→19:39)
--- NOTE | 2022-06-28 12:32 | PM.CONSULT ---
Providers/Reason For Consult Consulting Physician/Specialty*: Dr Betancourt Reason for Consult*: Medications for underlying medical conditions. Attending Physician: Darius Betancourt DO Primary Care Provider: Bennett Pa DO History of Present Illness History of Present Illness Pleasant 66-year-old lady with history of hypertension, hypothyroidism, peripheral neuropathy, mild asthma without any evidence of exacerbation, osteoarthritis underwent left TKA. She reports her current conditions have been stable and she otherwise has been at baseline state of health. Per discussion with Ortho surgery without complications. EBL 25 mL. Postoperatively she is feeling well. Knee is somewhat sore, but not much worse than usual. No chest pain or pressure. No trouble breathing. Review of Systems Const: Denies: fever(s), chills, body aches or malaise Card: Denies: chest pain, edema or dyspnea on exertion Resp: Denies: dyspnea GI: Denies: abdominal pain, nausea or vomiting Musc: Reports: joint pain Skin/Breast: Denies: rash Neuro: Reports: other (Peripheral neuropathy) Medications/Allergies Home Medications Medication Instructions Recorded Confirmed Last Taken Type cyclobenzaprine 10 mg tablet 10 mg PO TID 04/07/20 06/28/22 06/27/22 History fluticasone propionate 50 1 spray intranasal BID 04/07/20 06/28/22 06/28/22 History mcg/actuation nasal spray,suspension (Flonase Allergy Relief) hydrochlorothiazide 12.5 mg tablet 12.5 mg PO DAILY 04/07/20 06/28/22 06/27/22 History levothyroxine 125 mcg tablet 150 mcg PO DAILY 04/07/20 06/28/22 06/27/22 History metoprolol succinate 100 mg 100 mg PO DAILY 04/07/20 06/28/22 06/27/22 History tablet,extended release 24 hr rizatriptan 10 mg tablet (Maxalt) 10 mg PO Q2H PRN Headache 04/07/20 06/28/22 06/02/22 History trazodone 100 mg tablet 100 mg PO DAILY 04/07/20 06/28/22 06/27/22 History metoclopramide HCl 10 mg tablet 10 mg PO Q6H PRN Nausea 05/03/20 06/28/22 06/27/22 History alprazolam 0.5 mg disintegrating 0.5 mg PO DAILY 10/25/21 06/28/22 06/27/22 History tablet losartan 50 mg tablet 50 mg PO DAILY 10/25/21 06/28/22 06/27/22 History magnesium oxide 400 mg PO DAILY 10/25/21 06/28/22 06/27/22 History tramadol 50 mg tablet 100 mg PO TID PRN Pain 10/25/21 06/28/22 06/27/22 History vitamin B complex 1 tab PO DAILY 10/25/21 06/28/22 06/27/22 History gabapentin 100 mg capsule 300 mg PO TID 03/07/22 06/28/22 06/27/22 History medial cage unloader brace #1 ea 03/31/22 06/02/22 Unknown Rx Allergies Allergy/AdvReac Type Severity Reaction Status Date / Time No Known Allergies Allergy Verified 06/28/22 07:04 Current Medications Generic Name Dose Route Start Last Admin Trade Name Freq PRN Reason Stop Dose Admin Chlorhexidine Gluconate 30 ml 06/28/22 13:00 06/28/22 12:14 Chlorhexidine Gluconate 0.12% Btl 473 Ml MUCOUS MEM 30 ml QID REGINA Administration Lactated Ringer's 1,000 mls @ 100 mls/hr 06/28/22 11:35 06/28/22 12:13 Lactated Ringers IV 100 mls/hr .Q10H REGINA Administration PFSH Acute PFSH: Medical History Asthma Chronic cough Demyelinating neuropathy Hypertension Hypothyroid Left knee DJD Peripheral neuropathy Postnasal drip Sinusitis UTI (urinary tract infection) Surgical History Hx of appendectomy Hx of sinus surgery Hx of tonsillectomy S/P total hip arthroplasty S/P total right hip arthroplasty Family History Mother Hypertension Heart disease Father Heart disease Hypertension Stroke Social History Smoking and tobacco status: never smoked Second hand smoke exposure: No Smoking risk assessment/counseling performed?: Yes Alcohol intake: never Caregiver/support person: No Lives independently: Yes Household members: none Housing: House Marital status: service: No Current occupational status: retired Pets and animals: Yes Current gender identity: Female Vitals/I&O/Wt Last Vital Signs Temp 97.4 F L 06/28/22 12:00 Pulse 83 06/28/22 12:18 Resp 18 06/28/22 12:18 BP 142/86 06/28/22 12:18 Pulse Ox 93 06/28/22 12:18 O2 Del Method 06/28/22 12:18 06/27/22 06/28/22 06/28/22 22:59 06:59 14:59 Intake Total 1650 / 1650 Output Total 925 / 925 Balance 725 / 725 Weight last 48 hrs Weight 110.762 kg Weight 106.141 kg Physical Exam Narrative: Accompanied by family member. Const: COMMON NORMALS: patient oriented x3 and alert GENERAL APPEARANCE: cooperative ORIENTATION/CONSCIOUSNESS: Yes awake HENMT: COMMON NORMALS: oropharynx normal Neck/C-Spine: COMMON NORMALS: no JVD Resp: COMMON NORMALS: normal respiratory effort and clear to auscultation bilaterally AUSCULTATION: clear to auscultation bilaterally Cardio: COMMON NORMALS: no JVD, regular rhythm, S1 normal heart sound present, S2 normal heart sound present and No murmurs present (Cardio) RHYTHM: regular rhythm HEART SOUNDS: S1 normal heart sound present and S2 normal heart sound present GI: COMMON NORMALS: Normal to inspection, nondistended, normoactive bowel sounds present, Soft to palpation and non-tender PALPATION: Yes Soft to palpation Extremity: COMMON NORMALS: no joint enlargement and no pedal edema NARRATIVE EXTREMITY EXAM: LLE postop dressing. Left foot appears perfused. Able to wiggle toes. Neuro: COMMON NORMALS: patient oriented x3 and moves all extremities SENSORIUM/ORIENTATION: Yes alert Skin: COMMON NORMALS: no rashes or lesions noted GENERAL SKIN EXAM: no rashes or lesions noted Urinary Catheter Management: Luevano: Cath Placed During This Visit: yes Urinary Catheter Date of Insertion: 06/28/22 Urinary Catheter Time of Insertion: 08:30 Data 06/28/22 07:29 06/28/22 07:29 A&P Assessment and plan (1) S/P total knee arthroplasty: Just underwent TKA, doing well postoperative. Managed by orthopedic surgery. Requesting consultation due to a number of chronic stable medical conditions. She otherwise did well intraoperatively. No complications as per discussion with the surgeon. EBL 25 mL. Discussed with orthopedics. Plan will be to return home. Anesthesia and Ortho op note reviewed. Continue postoperative management. Plan HTN: Stable. At home blood pressures run 130-40/80. Monitor blood pressure. Would recommend cardiac diet. Continue metoprolol, statin, HCTZ. Caution with NSAIDs. Hypothyroidism: Follows with primary provider with regards to hypothyroidism. Continue levothyroxine. Peripheral neuropathy: Follows with neurology. Note reviewed. Condition has been stable. Plans for further follow-up earlier this year. Continue gabapentin. Asthma: Has not had any exacerbation. Does not use inhaler. Monitor for symptoms. Continue Flonase. Reviewed pulmonology note. Osteoarthritis: Continue cyclobenzaprine. Tramadol as needed. Patient also taking Xanax scheduled daily 0.5 mg. Not sure why she is taking, but this appears recurrently in all her outpatient visits. Possibly as additional muscle relaxant. We will continue so she does not go into withdrawal. Consult Attestations Medical Necessity Statement: Continue postoperative care after left AKA. Diagnoses S/P total knee arthroplasty Z96.659
[2022-06-28] MEDS: gabapentin 300 mg Capsule PO ×2 (15:07→19:40)
[2022-06-28] MEDS: ketorolac 30 mg/mL INJ 15 MG IVP (15:23)
--- NOTE | 2022-06-28 15:32 | ANE.PACU2 ---
Inpatient post-anesthesia follow up: Airway intact: Yes Vital signs: Temperature 97.4 F Pulse Rate 88 Respiratory Rate 16 Blood Pressure 142/86 Pulse Oximetry 97 Oxygen Delivery Me thod Room Air Oxygen Flow Rate Fraction of Inspir ed Oxygen Hydration adequate: Yes Nausea and vomiting: No Pain level: 1 Mental status: Baseline
[2022-06-28] MEDS: calcium carbonate 500 mg Chew Tablet 1000 MG PO (17:15)
[2022-06-28] MEDS: docusate sodium 100 mg Capsule PO (17:15)
[2022-06-28] MEDS: iron polysaccharide complex 150 mg Capsule PO (17:15)
[2022-06-28] MEDS: mupirocin oint 22 gm 1 APPLIC NASAL (17:25)
[2022-06-28] MEDS: oxyCODONE 5 mg IR Tab/Cap PO ×2 (18:25→22:59)
[2022-06-28] MEDS: trazodone 100 mg Tablet PO (19:40)
[2022-06-28] MEDS: ALPRAZolam 0.5 mg Tablet PO (19:53)
[2022-06-28] MEDS: cyclobenzaprine 10 mg Tablet PO (19:53)
[2022-06-29 03:46] VITALS: BP 114/71; PULSE 92; RESP 17; TEMP 36.4; O2SAT 95
[2022-06-29 05:13] LABS: Basophils % 0.1 %; Hematocrit 29.4 % (37.0-47.0); Hemoglobin 9.8 g/dL (11.5-15.3); Lymphocytes # 1.7 10^3/uL (0.8-4.8); Lymphocytes % 11.6 %; Mean Corpuscular HGB Conc 33.3 g/dL (30.0-36.0); Mean Corpuscular Hemoglobin 29.2 pg (28.0-34.0); Mean Corpuscular Volume 87.5 fl (81-99); Mean Platelet Volume 9.2 fL (7.4-10.4); Monocytes # 0.9 10^3/uL (0.2-0.9); Monocytes % 5.9 %; Neutrophils # 12.16 10^3/uL (1.8-7.7); Neutrophils % 82.1 %; Nucleated Red Blood Cells % 0 %; Platelet Count 312 10^3/cmm (130-400); Red Blood Count 3.36 10^6/uL (4.1-5.3); White Blood Count 14.8 10^3/uL (4.0-10.0)
[2022-06-29 05:45] LABS: Anion Gap 12.1 (5-19); Blood Urea Nitrogen 14 mg/dL (8-23); Calcium 9.6 mg/dL (8.5-10.5); Carbon Dioxide 27 mmol/L (22-29); Chloride 102 mmol/L (98-107); Creatinine Clr Calc Pharmacy 87.8101; Glomerular Filtration Rate 83.2 mL/min (90-130); Glucose 139 mg/dL (65-115); Osmolality Calculated 287 mOsm/kg (285-295); Potassium 4.1 mmol/L (3.5-5.1); Sodium 137 mmol/L (136-145)
[2022-06-29 05:46] VITALS: RESP 16
[2022-06-29] MEDS: acetaminophen 1,000 MG/100 ML PIGGYBACK 400 MG IV (05:46)
[2022-06-29] MEDS: oxyCODONE 5 mg IR Tab/Cap PO ×2 (05:46→12:01)
[2022-06-29] MEDS: ceFAZolin 2,000 MG in sodium chloride 0.9% (plus) 50 ML 100 MG IV (09:02)
[2022-06-29] MEDS: iron polysaccharide complex 150 mg Capsule PO (09:07)
[2022-06-29] MEDS: apixaban 5 mg Tablet 2.5 MG PO (09:08)
[2022-06-29] MEDS: calcium carbonate 500 mg Chew Tablet 1000 MG PO (09:10)
[2022-06-29] MEDS: cholecalciferol (vitamin D3) 1,000 unit Tablet 1000 UNIT PO (09:11)
[2022-06-29] MEDS: docusate sodium 100 mg Capsule PO (09:12)
[2022-06-29] MEDS: gabapentin 300 mg Capsule PO ×2 (09:13→15:08)
[2022-06-29] MEDS: levothyroxine 150 mcg Tablet PO (09:13)
[2022-06-29] MEDS: multivitamin therapeutic Tablet 1 TAB PO (09:14)
[2022-06-29] MEDS: magnesium oxide 400 mg tablet PO (09:14)
[2022-06-29] MEDS: metoprolol succinate ER (24 HR) 100 mg Tablet PO (09:14)
[2022-06-29] MEDS: lactated ringers 1,000 ML 100 ML IV (09:26)
[2022-06-29] MEDS: chlorhexidine gluconate 0.12% Btl 473 mL 30 ML MUCOUS MEM ×2 (09:37→12:05)
--- NOTE | 2022-06-29 10:16 | PC.CHAP ---
Pastoral Care Encounter/Spiritual Assessment Type of Contact [] Declined reducing salon attendant visit [] Patient/Family/Request visit [] Outpatient visit [] Follow-up visit [] Physician referral [] Code/Alert [] Routine visit [] Staff referral [] Actively dying [] Patient sleeping [] Family support [] [] Out of room [] Palliative care [] [] Receiving care in room [] Pre-surgical visit [] Trauma [] Long length of stay [] ICU visit [] Other: Relational/Emotional Strength [x] Patient feels connected with others/family/visitors/staff [] Distress [] Loneliness/isolation [] Abandonment Spirituality of Patient [x] Person of Rubi [] Attends Alevism of their Rubi [x] Believes in Prayer [] Reads Bible or Evangelical materials [] There are Spiritual issues to be addressed Dot Compliance Coordinator Interventions [x] Prayer [x] Active listening [x] Non-anxious presence [x] Spiritual/emotional support [] Crisis/trauma care [x] Spiritual counseling [] Bereavement support [] Provided bereavement packet [] Provided Bible/devotional materials [] Provided toy/stuffed animal, coloring book to patient or family member [] Provided Communion [] Anointing/[place] [] Salvation [x] Completed spiritual assessment [] Other: Impact on Illness or Injury [] Angry [] Fearful [] Anxious [] Often cries [] Exhaustion [] Unable to work [] Unable to attend sabianism [] Unable to walk/stand [] Unable to read [] Unable to drive [] Unable to eat/drink [] Unable to sleep [] Unable to be with family [] Patient intubated [] Other: Summary had surgery on hip in some pain some rehab has a good attitude well go home Time spent with patient 10 mins
[2022-06-29] MEDS: mupirocin oint 22 gm 1 APPLIC NASAL (10:44)
[2022-06-29 11:45] VITALS: BP 130/78; PULSE 92; RESP 14; TEMP 36.6; O2SAT 98
[2022-06-29 12:01] VITALS: RESP 16
--- NOTE | 2022-06-29 12:38 | P.PN_ITS ---
Subjective Subjective: Denies any new complaints. No trouble breathing. No chest pain. Walked with PT. Vitals/I&O/Wt Last Vital Signs Temp 97.8 F 06/29/22 11:45 Pulse 92 06/29/22 11:45 Resp 16 06/29/22 12:01 BP 130/78 06/29/22 11:45 Pulse Ox 98 06/29/22 11:45 O2 Del Method 06/29/22 11:45 06/28/22 06/29/22 06/29/22 22:59 06:59 14:59 Intake Total 1153.333 / 2939.333 1340 / 4279.333 410 / 410 Output Total 1650 / 3675 500 / 4175 Balance -496.667 / -735.667 840 / 104.333 410 / 410 Weight last 48 hrs Weight 110.762 kg Physical Exam Narrative: Sitting up in chair. Const: COMMON NORMALS: patient oriented x3 and alert GENERAL APPEARANCE: cooperative ORIENTATION/CONSCIOUSNESS: Yes awake HENMT: COMMON NORMALS: oropharynx normal Neck/C-Spine: COMMON NORMALS: no JVD Resp: COMMON NORMALS: normal respiratory effort and clear to auscultation bilaterally AUSCULTATION: clear to auscultation bilaterally Cardio: COMMON NORMALS: no JVD, regular rhythm, S1 normal heart sound present, S2 normal heart sound present and No murmurs present (Cardio) RHYTHM: regular rhythm HEART SOUNDS: S1 normal heart sound present and S2 normal heart sound present GI: COMMON NORMALS: Normal to inspection, nondistended, normoactive bowel sounds present, Soft to palpation and non-tender PALPATION: Yes Soft to palpation Extremity: COMMON NORMALS: no joint enlargement and no pedal edema NARRATIVE EXTREMITY EXAM: LLE postop dressing. Left foot appears perfused. Able to wiggle toes. Neuro: COMMON NORMALS: patient oriented x3 and moves all extremities SENSORIUM/ORIENTATION: Yes alert Skin: COMMON NORMALS: no rashes or lesions noted GENERAL SKIN EXAM: no rashes or lesions noted Urinary Catheter Management: Luevano: Cath Placed During This Visit: yes, but has since been removed by the nurse Reason for Continuing Indwelling Catheter: Decision to DC Catheter Urinary Catheter Date of Insertion: 06/28/22 Urinary Catheter Time of Insertion: 08:30 Date Urinary Catheter Removed: 06/29/22 Time Urinary Catheter Discontinued: 05:58 Data 06/29/22 04:56 06/29/22 04:56 A&P Assessment and plan (1) S/P total knee arthroplasty: Just underwent TKA, doing well postoperative. Managed by orthopedic surgery. Requesting consultation due to a number of chronic stable medical conditions. She otherwise did well intraoperatively. No complications as per discussion with the surgeon. EBL 25 mL. Discussed with orthopedics. Plan will be to return home. Anesthesia and Ortho op note reviewed. Continue postoperative management. Likely return home today. She is doing well. Noted leukocytosis, suspect stress related that she does not have any additional new symptoms. Encourage I- S. Noted anemia, hemoglobin at 9.8, would follow-up hemoglobin with office visit and with primary provider. Plan HTN: Blood pressure soft this morning, 102 systolic. She denies any shortness o f breath or chest pain, no other symptoms. Losartan and HCTZ held this morning. Discussed with her to monitor blood pressures at home. Recheck blood pressure up to 130/78. Discussed with her her remains like this may resume her usual medications tomorrow morning. At home blood pressures run 130-40/80. Monitor blood pressure. Would recommend cardiac diet. Continue metoprolol, statin, HCTZ. Caution with NSAIDs. Hypothyroidism: Follows with primary provider with regards to hypothyroidism. Continue levothyroxine. Peripheral neuropathy: Follows with neurology. Note reviewed. Condition has been stable. Plans for further follow-up earlier this year. Continue gabapentin. Asthma: Has not had any exacerbation. Does not use inhaler. Monitor for symptoms. Continue Flonase. Reviewed pulmonology note. Osteoarthritis: Continue cyclobenzaprine. Tramadol as needed. Patient also taking Xanax scheduled nightly which was continued. Should follow- up with primary provider. Attestations Medical Necessity Statement*: Continue postoperative care after left TKA, discharge planning and arrangements. Diagnoses S/P total knee arthroplasty Z96.659
--- NOTE | 2022-06-29 12:46 | P.DS_ITS ---
Discharge Providers Date of Admission: 06/28/22 10:30 Date of Discharge: June 29, 2022 Attending Provider at Admission: Darius Betancourt DO Attending Provider at Discharge: Darius Betancourt DO Consults: Dr. Hernandez?hospitalist Primary Care Provider: Bennett Pa DO Diagnoses at Discharge Discharge Diagnosis (1) S/P total knee arthroplasty: Status: Acute Reason for Visit Reason for Visit: M17.12 Brief History: Left knee degenerative joint disease, failed conservative treatment?underwent left total knee arthroplasty Hospital Course Hospital Course Patient presented to the hospital after appropriate preoperative work-up for failed conservative treatment of left knee degenerative joint disease. Presented for left total knee arthroplasty she she was seen evaluated by anesthesia underwent spinal anesthetic was taken back to the operative suite. She underwent a left total knee arthroplasty robotic assisted Farhat tolerated procedure without complications no issues intraoperatively. She was subsequently taken to PACU in stable condition and recovered well was admitted to the floor postoperatively. Spinal anesthetic appropriately wore off. She received appropriate preoperative and perioperative antibiotics as well as perioperative TXA. Patient received appropriate pain control as well as DVT prophylaxis postoperatively. PT/OT on board and evaluated patient. Dressing was maintained as needed labs followed postoperatively. On postoperative day 1 it was determined patient was stable for discharge from orthopedic and internal medicine standpoint. Plan was for discharge home with home health care. She received appropriate discharge instruction as well as pain medication as well as postoperative DVT prophylaxis for 2 weeks. She will follow-up with me in the office in 2 weeks. Understands her instructions with her dressing and knee range of motion as tolerated to the left knee. Physical Exam Narrative: Left lower extremity spinal anesthesia is worn off sensation intact light touch distally to the left lower extremity SPN/DPN/tibial saphenous and sural nerve distribution. Dressing on in place clean dry and intact. Distal pulses are palpable toes warm well perfused. Patient is able to wiggle toes plantarflex and dorsiflex ankle Urinary Catheter Management: L[place]: Cath Placed During This Visit: yes, but has since been removed by the nurse Reason for Continuing Indwelling Catheter: Decision to DC Catheter Urinary Catheter Date of Insertion: 06/28/22 Urinary Catheter Time of Insertion: 08:30 Date Urinary Catheter Removed: 06/29/22 Time Urinary Catheter Discontinued: 05:58 Discharge Data Studies Completed and Pending Completed Studies During Hospitalization Category Date Time Status XR knee LT 1-2V 18815 Routine Exams 06/28/22 11:03 Completed Pending at discharge Category Date Time Status Basic Metabolic Panel AM LABS Lab 06/30/22 04:00 Ordered Basic Metabolic Panel AM LABS Lab 07/01/22 04:00 Ordered Complete Blood Count w/Auto AM LABS Lab 06/30/22 04:00 Ordered Complete Blood Count w/Auto AM LABS Lab 07/01/22 04:00 Ordered Radiology Impressions Knee X-Ray 06/28/22 11:03 IMPRESSION: Total left knee arthroplasty without abnormality. Laboratory Results WBC 14.8 10^3/uL (4.0-10.0) H 06/29/22 04:56 RBC 3.36 10^6/uL (4.1-5.3) L 06/29/22 04:56 Hgb 9.8 g/dL (11.5-15.3) L 06/29/22 04:56 Hct 29.4 % (37.0-47.0) L 06/29/22 04:56 MCV 87.5 fl (81-99) 06/29/22 04:56 MCH 29.2 pg (28.0-34.0) 06/29/22 04:56 MCHC 33.3 g/dL (30.0-36.0) 06/29/22 04:56 RDW 13.0 % (12.1-15.1) 06/29/22 04:56 Plt Count 312 10^3/cmm (130-400) 06/29/22 04:56 MPV 9.2 fL (7.4-10.4) 06/29/22 04:56 Neut % (Auto) 82.1 % 06/29/22 04:56 Lymph % (Auto) 11.6 % 06/29/22 04:56 Grundy % (Auto) 5.9 % 06/29/22 04:56 Eos % (Auto) 0.0 % 06/29/22 04:56 Baso % (Auto) 0.1 % 06/29/22 04:56 Neut # (Auto) 12.16 10^3/uL (1.8-7.7) H 06/29/22 04:56 Lymph # (Auto) 1.7 10^3/uL (0.8-4.8) 06/29/22 04:56 Grundy # (Auto) 0.9 10^3/uL (0.2-0.9) 06/29/22 04:56 Eos # (Auto) 0.0 10^3/uL (0.0-0.8) 06/29/22 04:56 Baso # (Auto) 0.0 10^3/uL (0.0-0.1) 06/29/22 04:56 Nucleated RBC % (auto) 0 % 06/29/22 04:56 Nucleated RBCs # 0.0 /100WBC 06/29/22 04:56 Sodium 137 mmol/L (136-145) 06/29/22 04:56 Potassium 4.1 mmol/L (3.5-5.1) 06/29/22 04:56 Chloride 102 mmol/L (98-107) 06/29/22 04:56 Carbon Dioxide 27 mmol/L (22-29) 06/29/22 04:56 Anion Gap 12.1 (5-19) 06/29/22 04:56 BUN 14 mg/dL (8-23) 06/29/22 04:56 Creatinine 0.7 mg/dL (0.5-0.9) 06/29/22 04:56 GFR Calculation 83.2 mL/min (90-130) L 06/29/22 04:56 Glucose 139 mg/dL (65-115) H 06/29/22 04:56 Calculated Osmolality 287 mOsm/kg (285-295) 06/29/22 04:56 Calcium 9.6 mg/dL (8.5-10.5) 06/29/22 04:56 Procedures Performed Left total knee arthroplasty, Farhat robotic assisted Vitals Last Vital Signs Temp 97.8 F 06/29/22 11:45 Pulse 92 06/29/22 11:45 Resp 16 06/29/22 12:01 BP 130/78 06/29/22 11:45 Pulse Ox 98 06/29/22 11:45 O2 Del Method 06/29/22 11:45 Discharge Plan Discharge Patient Disposition: Home Health Service Condition: Stable Prescriptions: New Eliquis 2.5 mg tablet 2.5 mg PO BID 14 Days Qty: 28 0RF Percocet 5-325 mg tablet 1 tab PO Q6H PRN (Reason: pain) 7 Days Qty: 28 0RF Colace 100 mg capsule 100 mg PO DAILY PRN (Reason: constipation) 10 Days Qty: 10 0RF ondansetron 4 mg tablet,disintegrating 4 mg PO DAILY 5 Days Qty: 5 0RF calcium carbonate-vitamin D3 600 mg-10 mcg (400 unit) Tablet 1 ea PO BID 30 Days Qty: 60 0RF Continued metoclopramide HCl 10 mg tablet 10 mg PO Q6H PRN (Reason: Nausea) cyclobenzaprine 10 mg tablet 10 mg PO TID fluticasone propionate [Flonase Allergy Relief] 50 mcg/actuation spray,suspension 1 spray intranasal BID Rx Instructions: administer into each nostril hydrochlorothiazide 12.5 mg tablet 12.5 mg PO DAILY levothyroxine 125 mcg tablet 150 mcg PO DAILY rizatriptan [Maxalt] 10 mg tablet 10 mg PO Q2H PRN (Reason: Headache) Rx Instructions: do not exceed 3 doses per 24 hrs metoprolol succinate 100 mg tablet extended release 24 hr 100 mg PO DAILY trazodone 100 mg tablet 100 mg PO DAILY alprazolam 0.5 mg tablet,disintegrating 0.5 mg PO DAILY (DME) medial puttying and calking supervisor brace See Rx Instructions .Route .MEDSUPPLY Qty: 1 0RF Rx Instructions: As directed losartan 50 mg tablet 50 mg PO DAILY tramadol 50 mg tablet 100 mg PO TID PRN (Reason: Pain) vitamin B complex Tablet 1 tab PO DAILY magnesium oxide 400 mg magnesium tablet 400 mg PO DAILY gabapentin 100 mg capsule 300 mg PO TID Discharge Orders: Discharge Order (Routine); Ordered 06/29/22 Ordered By: Darius Betancourt Referrals: Bennett Pa DO [Primary Care Provider] - 07/11/22 7:15 am Darius Betancourt DO [Physician] - 07/07/22 9:15 am Discharge Diet: Advance as tolerated Discharge Activity: Increase activity as tolerated Patient Instructions: Oxycodone/Acetaminophen (By mouth) (Percocet, Roxicet), Ondansetron (By mouth), Calcium Supplement (By mouth), Apixaban (By mouth), Knee Replacement (GEN), Joint Replacement Stoplight, Opioid Safety Activity Restrictions/Additional Instructions: Orthopedic discharge instructions: Weightbearing as tolerated left lower extremity Keep dressing on in place for 3 days after surgery. May remove dressings then may shower rinse incision with warm soapy water pat dry and redress with a dry dressing. Use MIRLANDE hose/compression socks for pain and swelling May loosen Shorty wrap as needed if too tight Ice and elevate as needed Range of motion to the left knee as tolerated Take pain medication as prescribed Take Eliquis (blood thinner) for blood clot prevention for 2 weeks as prescribed Supplement with Colace for constipation if needed Take antinausea medication as needed Follow-up with Dr. Betancourt in the office in 2 weeks Contact the office for any questions or concerns Follow-up with your primary doctor for reassessment of anemia. Have your primary doctor draw blood counts in office to recheck hemoglobin as well as white blood cell count which is noted elevated, suspected after surgery. Continue incentive spirometer at home. Follow-up and discuss with your primary doctor regarding chronic benzodiazepine use risks and possible alternatives. As discussed continue to monitor your blood pressure, if no further soft blood pressures, blood pressure elevated, resume usual antihypertensive medications. Otherwise continue to hold losartan/HCTZ until blood pressure rises as discussed. Discharge Attestations Time Spent in Discharge Care*: greater than 30 min Quality Metrics Clinical Quality Measures [ No reported AMI, CVA or VTE this stay] Coding Level of Care Code Acute Code for Chg Fwd Diagnoses S/P total knee arthroplasty Z96.659
[2022-06-29 17:00] VITALS: RESP 16
== END 2022-06-29 16:45 | disposition home health service (06) ==
LOC: MEDSURG 10:30
PROVIDERS: Admitting Provider Student in an Organized Health Care Education/Training Program; PCP Electrodiagnostic Medicine; Visit Provider Student in an Organized Health Care Education/Training Program
PROC: 8E0Y0CZ Robotic Assisted Procedure of Lower Extremity, Open Approach (ICD-10-PCS; CPT 27447; principal; 2022-06-28 07:50)
DX: M17.12 Unilateral primary osteoarthritis, left knee (principal); I10 Essential (primary) hypertension; E03.9 Hypothyroidism, unspecified; J45.909 Unspecified asthma, uncomplicated; G62.9 Polyneuropathy, unspecified
CPT/HCPCS: 27447; 36415; 51702; 73560; 80048; 85025; 97110; 97116; 97161; 97165; C1776; G0378; J0131; J0171; J0690; J1100; J1170; J1885; J2250; J2405; J2704; J2795; J7030; J7120

== ENCOUNTER → 2022-07-07 09:04 | Outpatient (BNVA) | payer MEDICARE, OTHER, SELFPAY | PROVIDERS: PCP Electrodiagnostic Medicine; Visit Provider Student in an Organized Health Care Education/Training Program | DX: Z96.651 Presence of right artificial knee joint (principal) | CPT/HCPCS: 99024 ==

== ENCOUNTER → 2022-07-24 14:36 | Outpatient (BNVA) | payer MEDICARE, OTHER, SELFPAY | PROVIDERS: PCP Electrodiagnostic Medicine; Visit Provider Student in an Organized Health Care Education/Training Program | DX: Z96.652 Presence of left artificial knee joint (principal) | CPT/HCPCS: 73560; 73565; 99024 ==

== ENCOUNTER 2022-08-07 06:00 | Outpatient (RCR) | payer MEDICARE, OTHER, SELFPAY | END 2022-08-27 23:59 | disposition home or self-care (01) | LOC: SPT 06:00 | PROVIDERS: Visit Provider Student in an Organized Health Care Education/Training Program | DX: Z47.1 Aftercare following joint replacement surgery (principal); Z96.652 Presence of left artificial knee joint | CPT/HCPCS: 97110; 97161 ==

== ENCOUNTER → 2022-08-21 10:44 | Outpatient (BNVA) | payer MEDICARE, OTHER, SELFPAY | PROVIDERS: Visit Provider Student in an Organized Health Care Education/Training Program | DX: Z47.89 Encounter for other orthopedic aftercare (principal); Z96.659 Presence of unspecified artificial knee joint | CPT/HCPCS: 73502; 73560; 73565; 99024; 99213 ==

== ENCOUNTER 2022-08-30 16:47 | Outpatient (RCR) | payer MEDICARE, OTHER, SELFPAY | END 2022-09-27 23:59 | disposition home or self-care (01) | LOC: SPT 16:47 | PROVIDERS: Visit Provider Student in an Organized Health Care Education/Training Program | DX: Z47.89 Encounter for other orthopedic aftercare (principal) | CPT/HCPCS: 97110 ==

== ENCOUNTER → 2022-09-20 09:55 | Outpatient (BNVA) | payer MEDICARE, OTHER, SELFPAY | PROVIDERS: PCP Electrodiagnostic Medicine; Visit Provider Specialist | DX: G62.9 Polyneuropathy, unspecified (principal) | CPT/HCPCS: 99213 ==

== ENCOUNTER 2022-09-28 06:00 | Outpatient (RCR) | payer MEDICARE, OTHER, SELFPAY | END 2022-10-25 23:59 | disposition home or self-care (01) | LOC: SPT 06:00 | PROVIDERS: PCP Electrodiagnostic Medicine; Visit Provider Student in an Organized Health Care Education/Training Program | DX: Z98.890 Other specified postprocedural states (principal) | CPT/HCPCS: 97110 ==

== ENCOUNTER → 2022-11-23 14:40 | Outpatient (BNVA) | payer MEDICARE, OTHER, SELFPAY | PROVIDERS: PCP Electrodiagnostic Medicine; Visit Provider Student in an Organized Health Care Education/Training Program | DX: Z96.652 Presence of left artificial knee joint; Z96.641 Presence of right artificial hip joint | CPT/HCPCS: 73502; 73560; 73565; 99214 ==